=== PATIENT | female | born 1945 | race Caucasian/White ===

== ENCOUNTER 2021-06-07 12:22 | Emergency (ER) | payer MEDICARE, SELFPAY ==
--- NOTE | ~2021-06-07 | XR_ITS ---
EXAMINATION: XR chest 1V portable DATE: 06/07/2021 12:57 INDICATION: Cough. COVID PUI TECHNIQUE: frontal view of the chest was obtained. COMPARISON: None FINDINGS: The lungs are clear with no focal airspace opacities, pulmonary edema, pleural effusion or pneumothor ax. The cardiomediastinal silhouette is normal. Plate and screw fixation for lower cervical anterior spinal fusion. IMPRESSION: 1. No acute cardiopulmonary disease. Reviewed, dictated and finalized at location A.
[2021-06-07 12:29] VITALS: BP 154/63; PULSE 71; RESP 23; TEMP 36.9; O2SAT 95
[2021-06-07 12:32] VITALS: O2SAT 96
--- NOTE | 2021-06-07 12:45 | ED.URI ---
HPI - URI/Sore Throat General Chief Complaint: Upper Respiratory Infection Stated Complaint: cough, wheezing Time Seen by Provider: 06/07/21 12:33 Source: patient Mode of arrival: ambulatory Limitations: no limitations History of Present Illness HPI Narrative: This is a 76-year-old female that presents emergency department for cough since this morning. Associated with headache and wheezing. She took her albuterol inhaler with little relief. Reports she is visiting from out of town. She is from [place] originally. She has had one of her Covid vaccines, is due for the other one when she returns home. Denies fever, chest pain, or shortness of breath. Related Data Allergies Allergy/AdvReac Type Severity Reaction Status Date / Time metoclopramide [From Reglan] Allergy Hives Verified 06/07/21 12:35 bupropion [From Wellbutrin] AdvReac Unknown Verified 06/07/21 12:35 oxycodone AdvReac Jittery Verified 06/07/21 12:35 Sulfa (Sulfonamide AdvReac Seizure Verified 06/07/21 12:35 Antibiotics) Review of Systems Review of Systems: CONSTITUTIONAL: Denies fever ENT: Denies rhinorrhea, congestion, sore throat CARDIOVASCULAR: Denies chest pain, or edema. RESPIRATORY: Reports cough. Denies dyspnea. NEUROLOGIC: Reports headache All systems reviewed & are unremarkable except as noted in HPI and below PMFSH Past Medical History Medical History (Updated 06/07/21 @ 14:01 by Kathia Mills PA-C) History of COPD History of depression Social History Social History (Updated 06/07/21 @ 12:46 by Kathia Mills PA-C) Smoking status: Former smoker Exam Narrative: GENERAL: Well-appearing, well-nourished, and in no acute distress. HEAD: Normocephalic, atraumatic. EYES: EOMI. ENT: Nares clear, no rhinorrhea or epistaxis. Mucous membranes moist. Oropharynx without tonsillar hypertrophy exudate or other lesions. Bilateral TMs pearly [place] non-bulging NECK: Supple. No adenopathy or masses. CHEST: No respiratory distress. Scattered expiratory wheezes throughout the lung gonzalez. No rales or rhonchi HEART: Regular rate and rhythm. No murmur heard. Normal peripheral pulses. EXTREMITIES: Normal range of motion. No edema. SKIN: Warm, dry, no rash. NEURO: No focal deficits. Alert and oriented x3. PSYCH: Normal mood and affect Course Course Emergency Course: Lung sounds are improved following albuterol treatment Vital Signs Vital signs: Vital Signs Temperature 98.4 F 06/07/21 12:29 Pulse Rate 71 06/07/21 12:29 Respiratory Rate 23 H 06/07/21 12:29 Blood Pressure 154/63 H 06/07/21 12:29 Pulse Oximetry 95 06/07/21 12:29 Temperature 98.4 F 06/07/21 12:29 Pulse Rate 71 06/07/21 12:29 Respiratory Rate 23 H 06/07/21 12:29 Blood Pressure 154/63 H 06/07/21 12:29 Pulse Oximetry 96 06/07/21 12:32 MDM - URI/Sore Throat MDM Narrative Medical decision making narrative: Patient presents the emergency department for cold symptoms since this morning. She is afebrile and nontoxic-appearing. Oxygen saturation has remained normal on room air. CBC does show thrombocytopenia, likely due to current viral infection. Her rapid Covid swab was positive. Metabolic panel with mild hypokalemia. Patient given dose of potassium in the ED. EKG without concerning changes. Patient denies any chest pain or shortness of breath. Chest x-ray without acute cardiopulmonary abnormality. Patient was wheezing upon arrival, this was relieved with albuterol inhaler. Also given a dose of steroid IV in the ED. Will be continued on oral steroids for her COPD exacerbation. Patient was updated on case findings. She is stable and felt appropriate for further outpatient evaluation. She was given warnings to return to the ER Lab Data Attestation: I reviewed the patient's lab results. Result diagrams: 06/07/21 12:49 06/07/21 12:49 Labs: Lab Results 06/07/21 06/07/21 06/07/21 Range/Units 12:49 12:49 12:52 WB
[2021-06-07] MEDS: methylPREDNISolone SOD SUCC 125 MG VIAL IV PUSH (12:56)
[2021-06-07] MEDS: ALBUTEROL SULFATE (*SP) AEROSOL 1 PUFF 4 PUFF INHALATION (12:57)
--- NOTE | 2021-06-07 13:06 | ECG_ITS ---
Measurements Intervals [place] Rate: 65 P: 64 SC: 166 QRS: 6 QRSD: 99 T: 28 QT: 438 QTc: 459 Interpretive Statements SINUS RHYTHM POSSIBLE LEFT ATRIAL ENLARGEMENT INCOMPLETE RIGHT BUNDLE BRANCH BLOCK BORDERLINE T WAVE ABNORMALITY- DIFFUSE LEADS BASELINE ARTIFACT- II, III, AVR, AVF, V3-V6 BORDERLINE ECG Electronically Signed On 06-07-2021 20:37:57 CDT by Pedro Pablo Kaur D.O.
[2021-06-07 13:15] LABS: Basophils Percent Auto 0.3 % (0.2-1.2); Eosinophils Absolute Auto 0.1 K/mm3 (0-0.3); Eosinophils Percent Auto 1.4 % (0-4.4); Hematocrit 40.4 % (37.0-47.0); Hemoglobin 12.8 g/dL (12.0-15.0); Immature Granulocyte Absolute 0.01 K/mm3 (0.00-0.031); Immature Granulocyte Percent A 0.3 % (0-0.5); Immature Platelet Fraction Pct 2.8 % (0.9-11.2); Lymphocytes Absolute Auto 0.58 K/mm3 (0.9-3.2); Lymphocytes Percent Auto 15.8 % (18.3-44.2); Mean Corpuscular HGB Conc 31.7 g/dl (32-36); Mean Corpuscular Hemoglobin 29.8 pg (26-34); Mean Platelet Volume 9.7 fl (7.4-10.4); Monocytes Absolute Auto 0.4 K/mm3 (0.1-0.6); Monocytes Percent Auto 10.4 % (2.6-8.5); Neutrophils Absolute Auto 2.6 K/mm3 (1.3-6.7); Neutrophils Percent Auto 71.8 % (45.5-73.1); Platelet Count Result 85 k/mm3 (150-375); Red Cell Distribution Width 12.9 % (11.5-14.5); White Blood Count 3.7 K/mm3 (4.5-10.0)
[2021-06-07 13:20] LABS: EDCOVIDSCREEN Positive (Negative)
[2021-06-07 13:23] LABS: Anion Gap 5 mmol/L (8-16); Blood Urea Nitrogen 11 mg/dL (7-17); Calcium 7.9 mg/dL (8.4-10.2); Carbon Dioxide 32 mmol/L (22-30); Chloride 98 mmol/L (98-107); Estimated CRCL calculation 56 ml/min; Estimated Glomerular Filt Rate > 60; Glucose 111 mg/dL (65-110); Potassium 3.3 mmol/L (3.4-5.0); Sodium 135 mmol/L (137-145)
[2021-06-07] MEDS: POTASSIUM CHLORIDE 20 MEQ TABLET 40 MEQ PO (14:11)
== END 2021-06-07 14:25 | disposition home or self-care (01) ==
PROVIDERS: Physician Assistant; Emergency Provider Emergency Medicine
DX: U07.1 COVID-19 (principal); J44.1 Chronic obstructive pulmonary disease with (acute) exacerbation; D69.6 Thrombocytopenia, unspecified; E87.6 Hypokalemia; Z87.891 Personal history of nicotine dependence; I45.10 Unspecified right bundle-branch block; R94.31 Abnormal electrocardiogram [ECG] [EKG]
CPT/HCPCS: 36415; 71045; 80048; 85025; 85055; 87426; 93005; 96374; 99284; A9270; C9803; J2930

== ENCOUNTER 2021-06-11 20:35 | Emergency (ER) | payer MEDICARE, SELFPAY ==
--- NOTE | ~2021-06-11 | XR_ITS ---
EXAMINATION: XR chest 1V portable 06/11/2021 22:07 INDICATION: Cough. Covid. PROCEDURE: AP portable chest COMPARISON: 06/07/2021 FINDINGS: The lungs are clear. The cardiomediastinal silhouette is within normal limits. There are no pleural effusions. There is no pneumothorax suspected. IMPRESSION: 1: NO ACUTE CARDIOPULMONARY DISEASE. Reviewed, dictated and finalized at location A.
[2021-06-11 20:36] VITALS: BP 137/109; PULSE 80; RESP 17; TEMP 35.9; O2SAT 97
[2021-06-11 20:42] VITALS: BP 137/109; PULSE 62; RESP 20; TEMP 36.6; O2SAT 97
--- NOTE | 2021-06-11 21:50 | ED.URI ---
HPI - URI/Sore Throat General Chief Complaint: Upper Respiratory Infection Stated Complaint: covid+, cough Time Seen by Provider: 06/11/21 21:22 Source: patient History of Present Illness HPI Narrative: Patient presents with cough and shortness of breath. Patient was seen few days ago for the same was diagnosed with Covid was discharged home with steroids and inhaler due to her underlying COPD and asthma. Patient reports she has continued to have cough and shortness of breath. Patient ports her cough was productive she had increased drainage she was concerned so wanted to come to the ER for repeat evaluation. Related Data Allergies Allergy/AdvReac Type Severity Reaction Status Date / Time metoclopramide [From Reglan] Allergy Hives Verified 06/07/21 12:35 bupropion [From Wellbutrin] AdvReac Unknown Verified 06/07/21 12:35 oxycodone AdvReac Jittery Verified 06/07/21 12:35 Sulfa (Sulfonamide AdvReac Seizure Verified 06/07/21 12:35 Antibiotics) Review of Systems Review of Systems: CONSTITUTIONAL: Denies fever, chills, or sweats. EYES: Denies visual changes, redness, or discharge. ENT: Denies rhinorrhea, congestion, sore throat, or otalgia. CARDIOVASCULAR: Denies chest pain, palpitations, or edema. RESPIRATORY: Reports cough and shortness of breath GASTROINTESTINAL: Denies abdominal pain, nausea, vomiting, or diarrhea. GENITOURINARY: Denies dysuria or hematuria. SKIN: Denies rash or itching. MUSCULOSKELETAL: Denies back pain, joint pain. NEUROLOGIC: Denies headache, numbness, dizziness, or weakness. PSYCHIATRIC: Denies anxiety or depression. All systems reviewed & are unremarkable except as noted in HPI and below PMFSH Past Medical History Medical History History of COPD History of depression Social History Social History Smoking status: Former smoker Exam Narrative: GENERAL: Well-appearing, well-nourished, and in no acute distress. HEAD: Normocephalic, atraumatic. EYES: PERRLA and EOMI. ENT: Nares clear, no rhinorrhea or epistaxis. Mucous membranes moist. NECK: Supple. No masses. No JVD CHEST: No respiratory distress, diffuse rhonchi in all lung gonzalez HEART: Regular rate and rhythm. No murmur heard. Normal peripheral pulses. ABDOMEN: Soft, nontender, nondistended, normal active bowel sounds. EXTREMITIES: Normal range of motion. No edema. SKIN: Warm, dry, no rash. NEURO: No focal deficits. Alert and oriented x3. PSYCH: Normal mood and affect. Course Reevaluation(s) Reevaluation #1: Patient is resting comfortably reports feeling improved work-up reviewed with patient Date: 06/11/21 Time: 23:26 Vital Signs Vital signs: Vital Signs Temperature 35.9 C L 06/11/21 20:36 Pulse Rate 80 06/11/21 20:36 Respiratory Rate 17 06/11/21 20:36 Blood Pressure 137/109 H 06/11/21 20:36 Pulse Oximetry 97 06/11/21 20:36 Temperature 36.6 C 06/11/21 20:42 Pulse Rate 72 06/11/21 23:59 Respiratory Rate 20 06/11/21 23:59 Blood Pressure 165/58 H 06/11/21 23:59 Pulse Oximetry 94 06/11/21 23:59 MDM - URI/Sore Throat MDM Narrative Medical decision making narrative: H&P as above, vss, pt looks clinically well, exam with diffuse rhonchi, labs clinically unremarkable, img clinically unremarkable, additional labs/img considered. symptomatic relief available as needed, patient treated DuoNeb's and steroids. on reevaluation pt continues to looks clinically well reporting large improvement in symptoms. Suspect Covid pneumonia with COPD exacerbation, dns bacterial pneumonia, severe sepsis, hypoxia. plan to tx/monitor as op w/ pcm f/u findings/plan discussed with pt, pt agree/comfortable with plan, return precautions given patient reports having plenty of inhalers at home. Lab Data Result diagrams: 06/11/21 22:18 06/11/21 22:18 Labs: Lab Results 06/11/21 06/11/21 R
[2021-06-11] MEDS: ALBUTEROL SULFATE NEB 2.5 MG/0.5 ML INH 5 MG INHALATION (22:27)
[2021-06-11] MEDS: IPRATROPIUM BR 0.02% INH SOLN 0.5 MG/2.5 ML VIAL INHALATION (22:27)
[2021-06-11 22:29] VITALS: PULSE 61; RESP 17
[2021-06-11 22:31] LABS: Basophils Percent Auto 0.2 % (0.2-1.2); Eosinophils Absolute Auto 0.1 K/mm3 (0-0.3); Eosinophils Percent Auto 1.6 % (0-4.4); Hematocrit 40.8 % (37.0-47.0); Hemoglobin 12.9 g/dL (12.0-15.0); Immature Granulocyte Absolute 0.03 K/mm3 (0.00-0.031); Immature Granulocyte Percent A 0.7 % (0-0.5); Immature Platelet Fraction Pct 3.7 % (0.9-11.2); Lymphocytes Absolute Auto 0.67 K/mm3 (0.9-3.2); Mean Corpuscular HGB Conc 31.6 g/dl (32-36); Mean Corpuscular Hemoglobin 29.5 pg (26-34); Mean Corpuscular Volume 93.4 fl (80-100); Mean Platelet Volume 10.2 fl (7.4-10.4); Monocytes Absolute Auto 0.3 K/mm3 (0.1-0.6); Monocytes Percent Auto 7.2 % (2.6-8.5); Neutrophils Absolute Auto 3.4 K/mm3 (1.3-6.7); Neutrophils Percent Auto 75.3 % (45.5-73.1); Platelet Count Result 84 k/mm3 (150-375); Red Blood Count 4.37 M/mm3 (4.2-5.4); Red Cell Distribution Width 12.7 % (11.5-14.5); White Blood Count 4.5 K/mm3 (4.5-10.0)
[2021-06-11 22:32] VITALS: BP 176/69; PULSE 57; RESP 22; O2SAT 93
[2021-06-11] MEDS: methylPREDNISolone SOD SUCC 125 MG VIAL IV PUSH (22:34)
[2021-06-11 22:38] VITALS: PULSE 58; RESP 19
[2021-06-11 22:47] LABS: Alanine Aminotransferase 48 U/L (4-35); Albumin Level 3.7 g/dL (3.5-5.1); Alkaline Phosphatase 123 U/L (38-126); Anion Gap 5 mmol/L (8-16); Aspartate Amino Transferase 26 U/L (14-36); Bilirubin,Total 0.3 mg/dL (0.2-1.3); Blood Urea Nitrogen 14 mg/dL (7-17); Calcium 8.6 mg/dL (8.4-10.2); Carbon Dioxide 34 mmol/L (22-30); Chloride 98 mmol/L (98-107); Estimated CRCL calculation 55 ml/min; Estimated Glomerular Filt Rate > 60; Glucose 134 mg/dL (65-110); Potassium 3.8 mmol/L (3.4-5.0); Sodium 137 mmol/L (137-145)
[2021-06-11 23:59] VITALS: BP 165/58; PULSE 72; RESP 20; O2SAT 94
== END 2021-06-12 00:01 | disposition home or self-care (01) ==
PROVIDERS: Emergency Provider Emergency Medicine
DX: U07.1 COVID-19 (principal); J44.1 Chronic obstructive pulmonary disease with (acute) exacerbation; Z87.891 Personal history of nicotine dependence
CPT/HCPCS: 36415; 71045; 80053; 85025; 85055; 94640; 96374; 99284; J2930

== ENCOUNTER 2022-03-16 14:53 | Emergency (ER) | payer MEDICARE, SELFPAY ==
[2022-03-16] VITALS (17 sets, daily range): BP systolic 113–125; BP diastolic 55–66; PULSE 59–74; RESP 13–22; TEMP 36.2; O2SAT 91–96
--- NOTE | ~2022-03-16 | US_ITS ---
EXAMINATION: US venous doppler LE RT DATE: 03/16/2022 15:32 INDICATION: redness, warmth, swelling at ankle, right lower limb pain. TECHNIQUE: Grayscale images without and with compression and Doppler images of the left lower extremi ty veins were obtained. COMPARISON: None FINDINGS: The right common femoral vein, profunda femoral vein, femoral vein, popliteal vein, peroneal vein, po sterior tibial veins, gastrocnemius vein, and greater saphenous vein are patent. Small Dudley's cyst. No sonographic abnormality in the area of erythema. IMPRESSION: 1. Patent right lower extremity veins. No evidence of deep venous thrombosis Reviewed, dictated and finalized at location K.
--- NOTE | 2022-03-16 15:10 | ED.WOUNDLAC ---
HPI - Wound/Laceration General Chief Complaint: Wound/Laceration Stated Complaint: redness to RLE Time Seen by Provider: 03/16/22 15:03 History of Present Illness HPI narrative: Patient is a 77-year-old female here for evaluation of redness, pain and swelling around her right calf today. Patient states she woke up with the pain this morning. She states the area feels hot to touch. She has not tried any medications for her pain. Denies history of blood clot. Denies chest pain, shortness of breath, fevers, chills, abdominal pain. She takes Xarelto and has a history of low platelets. Related Data Allergies Allergy/AdvReac Type Severity Reaction Status Date / Time metoclopramide [From Reglan] Allergy Hives Verified 03/16/22 18:00 Sulfa (Sulfonamide Allergy Seizure Verified 03/16/22 18:00 Antibiotics) bupropion [From Wellbutrin] AdvReac Unknown Verified 03/16/22 18:00 oxycodone AdvReac Jittery Verified 03/16/22 18:00 Review of Systems Review of Systems: Gen.: Denies fevers or chills Eyes: Denies eye pain or visual change ENT: Denies congestion Respiratory: Denies shortness of breath or cough CV: Denies chest pain or palpitations GI: Denies abdominal pain nausea, emesis or diarrhea denies burning, urgency, frequency or hematuria Musculoskeletal: Denies back pain or muscle pain Neuro: Denies numbness, tingling, weakness or focal weakness Skin: Reports redness to right lower extremity Except as documented, all other systems reviewed and negative [facility] Past Medical History Medical History History of COPD History of depression Social History Social History Smoking status: Former smoker Exam Narrative: Gen: Alert, oriented, no acute distress Eyes: EOMI, no icterus Pulm: Respirations even and unlabored, symmetric thorax expansion, no audible stridor or visible cyanosis CV: Regular rate per telemetry GI: No distension, no voluntary/involuntary guarding Neuro: AOx4, moves all extremities without apparent difficulty or weakness, follows commands MSK: Calf tenderness on the right. 1+ pitting edema to RLE. Skin: Patient has a 3 cm, bandlike area of blanching erythema around her right lower extremity that is warm and tender to palpation. There are numerous petechiae to right lower extremity that does not overlie the area of erythema. Psych: Normal mood/affect, insight/judgement good, adequate fund of knowledge, recent/remote memory intact Course Vital Signs Vital signs: Vital Signs Temperature 97.2 F L 03/16/22 14:56 Pulse Rate 74 03/16/22 14:56 Respiratory Rate 16 03/16/22 14:56 Blood Pressure 116/65 03/16/22 14:56 Pulse Oximetry 96 03/16/22 14:56 Temperature 97.2 F L 03/16/22 14:56 Pulse Rate 66 03/16/22 18:01 Respiratory Rate 14 03/16/22 18:01 Blood Pressure 113/55 L 03/16/22 18:00 Pulse Oximetry 94 03/16/22 18:01 MDM - Wound/Laceration MDM Narrative Medical decision making narrative: 77-year-old female with a history of atrial fibrillation on Xarelto here for evaluation of a red painful rash to her right lower extremity. Vital signs normal, she is nontoxic-appearing and has no systemic symptoms. Ultrasound negative for DVT, work-up significant for platelets of 77, and elevated PT/PTT. Patient tells me that she has a history of chronic thrombocytopenia, this is confirmed with previous visits to ED. Possible petechial component to her rash, very low suspicion for TTP, HUS as patient is not systemically ill. Discussed case with nurse practitioner Suzie badillo for patient's primary care doctor, she was unable to locate old records to compare to previous values, but she will see the patient in clinic tomorrow. We will treat for presumed cellulitis with doxycycline, discussed return precautions with patient and she voiced understanding. Lab Data Result diagrams:
--- NOTE | 2022-03-16 15:23 | PC.NURSE ---
Patient off unit to US.
[2022-03-16 15:56] LABS: Basophils Percent Auto 0.4 % (0.2-1.2); Eosinophils Absolute Auto 0.1 K/mm3 (0-0.3); Eosinophils Percent Auto 1.3 % (0-4.4); Hematocrit 37.7 % (37.0-47.0); Hemoglobin 12.3 g/dL (12.0-15.0); Immature Granulocyte Absolute 0.02 K/mm3 (0.00-0.031); Immature Granulocyte Percent A 0.4 % (0-0.5); Immature Platelet Fraction Pct 3.8 % (0.9-11.2); Lymphocytes Absolute Auto 1.19 K/mm3 (0.9-3.2); Lymphocytes Percent Auto 21.7 % (18.3-44.2); Mean Corpuscular HGB Conc 32.6 g/dl (32-36); Mean Corpuscular Hemoglobin 30.1 pg (26-34); Mean Corpuscular Volume 92.2 fl (80-100); Monocytes Absolute Auto 0.3 K/mm3 (0.1-0.6); Monocytes Percent Auto 5.8 % (2.6-8.5); Neutrophils Absolute Auto 3.9 K/mm3 (1.3-6.7); Neutrophils Percent Auto 70.4 % (45.5-73.1); Platelet Count Result 77 k/mm3 (150-375); Red Blood Count 4.09 M/mm3 (4.2-5.4); Red Cell Distribution Width 12.5 % (11.5-14.5); White Blood Count 5.5 K/mm3 (4.5-10.0)
[2022-03-16 16:06] LABS: INR 1.7; Prothrombin Time 19.6 Seconds (11.1-14.7)
[2022-03-16 16:07] LABS: Partial Thromboplastin Time 38.2 SECONDS (22.3-36.8)
[2022-03-16 16:10] LABS: Anion Gap 5 mmol/L (8-16); Blood Urea Nitrogen 14 mg/dL (7-17); Calcium 8.2 mg/dL (8.4-10.2); Carbon Dioxide 31 mmol/L (22-30); Chloride 102 mmol/L (98-107); Estimated CRCL calculation 63 ml/min; Estimated Glomerular Filt Rate > 60; Glucose 157 mg/dL (65-110); Potassium 3.7 mmol/L (3.4-5.0); Sodium 138 mmol/L (137-145)
[2022-03-16] MEDS: ACETAMINOPHEN 325 MG TABLET 650 MG PO (17:59)
[2022-03-16] MEDS: DOXYCYCLINE HYCLATE 100 MG TABLET PO (17:59)
== END 2022-03-16 18:58 | disposition home or self-care (01) ==
PROVIDERS: Physician Assistant; Emergency Provider Emergency Medicine; PCP Family Medicine
DX: L03.115 Cellulitis of right lower limb (principal); J44.9 Chronic obstructive pulmonary disease, unspecified; Z79.01 Long term (current) use of anticoagulants; Z87.891 Personal history of nicotine dependence; I48.91 Unspecified atrial fibrillation
CPT/HCPCS: 36415; 80048; 85025; 85055; 85610; 85730; 93971; 99284; A9270

== ENCOUNTER 2022-05-04 19:33 | Emergency (ER) | payer MEDICARE, SELFPAY ==
--- NOTE | ~2022-05-04 | CT_ITS ---
EXAMINATION: CT brain wo con DATE: 05/04/2022 21:28 INDICATION: hx stroke, weakness today . TECHNIQUE: Computed tomography (CT) of the head was performed without intravenous contrast. The mA wa s adjusted according to patient size. Iterative reconstruction technique was employed. The dose-lengt h product was 605.33 mGy-cm. COMPARISON: None FINDINGS: No acute intracranial hemorrhage or extra-axial fluid collection. No hydrocephalus, mass, or herniation. No acute ischemic infarct. Unremarkable dural venous sinus attenuation. No acute osseous abnormality. The aerated spaces are clear. Moderate atrophy and mild chronic white matter change. Atherosclerotic intracranial calcification. Bi lateral lens replacements. IMPRESSION: No acute intracranial process. Reviewed, dictated and finalized at location K.
--- NOTE | ~2022-05-04 | XR_ITS ---
EXAMINATION: XR chest 2V Exam Date/Time: 05/04/2022 20:08 CDT HISTORY: WEAKNESS, SOB TODAY HX A.FIB,STENT,COPD,FORMER SMOKER Comparison: 06/11/2021. RESULT: Lines, tubes, and devices: Lower cervical fusion hardware. Lungs and pleura: Clear. Senescent changes. Cardiomediastinal silhouette: Stable. Other: No acute osseous or upper abdominal finding. IMPRESSION: No acute cardiopulmonary process. Reviewed, dictated and finalized at location K.
[2022-05-04 19:46] VITALS: BP 146/70; PULSE 55; RESP 16; TEMP 35.9; O2SAT 98
--- NOTE | 2022-05-04 19:52 | ECG_ITS ---
Measurements Intervals [place] Rate: 54 P: 63 IN: 147 QRS: 6 QRSD: 95 T: 16 QT: 487 QTc: 463 Interpretive Statements SINUS BRADYCARDIA POSSIBLE LEFT ATRIAL ENLARGEMENT POSSIBLE RIGHT VENTRICULAR CONDUCTION DELAY NONSPECIFIC ST ABNORMALITY PROLONGED QT INTERVAL COMPARED TO ECG 06/07/2021 12:59:09 HEART RATE HAS DECREASED ST (T WAVE) DEVIATION NOW PRESENT PROLONGED QT INTERVAL NOW PRESENT Electronically Signed On 05-05-2022 12:23:59 CDT by Matt Gonzáles M.D.
[2022-05-04 19:53] LABS: Glucose Point of Care 121 mg/dl (65-105)
[2022-05-04 20:08] LABS: Basophils Percent Auto 0.3 % (0.2-1.2); Eosinophils Absolute Auto 0.1 K/mm3 (0-0.3); Eosinophils Percent Auto 0.7 % (0-4.4); Hematocrit 43.8 % (37.0-47.0); Hemoglobin 13.9 g/dL (12.0-15.0); Immature Granulocyte Absolute 0.02 K/mm3 (0.00-0.031); Immature Granulocyte Percent A 0.3 % (0-0.5); Immature Platelet Fraction Pct 3.9 % (0.9-11.2); Lymphocytes Absolute Auto 1.52 K/mm3 (0.9-3.2); Lymphocytes Percent Auto 20.1 % (18.3-44.2); Mean Corpuscular HGB Conc 31.7 g/dl (32-36); Mean Corpuscular Hemoglobin 28.8 pg (26-34); Mean Corpuscular Volume 90.7 fl (80-100); Mean Platelet Volume 9.6 fl (7.4-10.4); Monocytes Absolute Auto 0.5 K/mm3 (0.1-0.6); Monocytes Percent Auto 6.9 % (2.6-8.5); Neutrophils Absolute Auto 5.5 K/mm3 (1.3-6.7); Neutrophils Percent Auto 71.7 % (45.5-73.1); Platelet Count Result 103 k/mm3 (150-375); Red Blood Count 4.83 M/mm3 (4.2-5.4); Red Cell Distribution Width 12.6 % (11.5-14.5); White Blood Count 7.6 K/mm3 (4.5-10.0)
[2022-05-04 20:25] LABS: Alanine Aminotransferase 11 U/L (6-35); Albumin Level 4.3 g/dL (3.5-5.1); Alkaline Phosphatase 94 U/L (38-126); Anion Gap 10 mmol/L (8-16); Aspartate Amino Transferase 21 U/L (14-36); Bilirubin,Total 1.1 mg/dL (0.2-1.3); Blood Urea Nitrogen 15 mg/dL (7-17); Calcium 8.7 mg/dL (8.4-10.2); Carbon Dioxide 29 mmol/L (22-30); Chloride 96 mmol/L (98-107); Estimated CRCL calculation 61 ml/min; Estimated Glomerular Filt Rate > 60; Glucose 110 mg/dL (65-110); Potassium 3.3 mmol/L (3.4-5.0); Sodium 135 mmol/L (137-145)
[2022-05-04 20:53] LABS: Appearance Urine Clear (Clear); Bilirubin Urine Negative (Negative); Blood Urine Trace-lysed (Negative); Color Urine Yellow (Yellow); Glucose Urine UA Negative (Negative); Ketones Urine Negative (Negative); Leukocyte Esterase Ur Negative LEU/UL (Negative); Nitrate Urine Negative (Negative); Protein Urine Negative (Negative); Urobilinogen Urine 0.2 mg/dL (<2.0)
[2022-05-04 20:59] LABS: Mucus Urine Rare /lpf; RBC Urine 0-2 /hpf (0-2); Squamous Epithelial Cell Urine Rare /hpf (Few)
[2022-05-04 21:01] LABS: Add Urine Microscopic? YES
--- NOTE | 2022-05-04 21:05 | ED.GENADULT ---
HPI - General Adult General Chief complaint: Weakness Stated complaint: WEAK AFTER WATER AEROBICS Time Seen by Provider: 05/04/22 21:04 History of Present Illness HPI narrative: Patient is a 77-year-old female history of prior CVA on Xarelto, here for evaluation of weakness earlier today. Patient states that she was feeling tired all throughout the day today. She took a water aerobics class earlier this evening, and during the class she felt more weak and tired, and felt like she might pass out. She got out of the water, and her symptoms improved but were still present, so she decided to come to the ED. She denies history of previous similar sensation. She denies any chest pain, syncope, dizziness, visual changes, headaches, paresthesias. She has history of COPD and states that she has a chronic cough, not worse than usual. Notes that she did not have much to eat or drink today. Related Data Allergies Allergy/AdvReac Type Severity Reaction Status Date / Time metoclopramide [From Reglan] Allergy Hives Verified 05/04/22 22:21 Sulfa (Sulfonamide Allergy Seizure Verified 05/04/22 22:21 Antibiotics) bupropion [From Wellbutrin] AdvReac Unknown Verified 05/04/22 22:21 oxycodone AdvReac Jittery Verified 05/04/22 22:21 Review of Systems Review of Systems: Gen: Reports weakness and chills Eyes: Denies eye pain or visual change ENT: Denies congestion Respiratory: Denies shortness of breath or cough CV: Denies chest pain or palpitations GI: Denies abdominal pain nausea, emesis or diarrhea : denies burning, urgency, frequency or hematuria Musculoskeletal: Denies back pain or muscle pain Neuro: Denies numbness, tingling, or focal weakness Skin: Denies rash Except as documented, all other systems reviewed and negative PMFSH Past Medical History Medical History History of COPD History of depression Social History Social History Smoking status: Former smoker Exam Narrative: APPEARANCE: Well appearing, no pain in distress, well-nourished. Head: Normocephalic and atraumatic. EYES: PERRLA/EOMI, conjunctivae clear NOSE: No nasal drainage EARS: External ear normal in appearance THROAT: Oropharynx is clear. Mucous membranes are moist. NECK: Supple. No adenopathy, no masses. RESPIRATORY: Airway patent, respirations nonlabored. Clear to auscultation bilaterally, no rales, rhonchi, wheezing. CARDIOVASCULAR: Regular rate and rhythm without murmurs, rubs, or gallops. ABDOMINAL: Normoactive bowel sounds. Soft, nontender, nondistended. No rebound tenderness or guarding. MUSCULOSKELETAL: Extremities are warm and well-perfused. Moves all extremities well. No edema. NEURO: Cranial nerves II through XII intact. [id number] normal. Normal speech. SKIN: Skin is warm and dry. No rashes. PSYCHIATRIC: Normal affect/mood. Course Vital Signs Vital signs: Vital Signs Temperature 96.7 F L 05/04/22 19:46 Pulse Rate 55 L 05/04/22 19:46 Respiratory Rate 16 05/04/22 19:46 Blood Pressure 146/70 H 05/04/22 19:46 Pulse Oximetry 98 05/04/22 19:46 Oxygen Delivery Room Air 05/04/22 19:46 Temperature 96.7 F L 05/04/22 19:46 Pulse Rate 82 05/04/22 23:27 Respiratory Rate 16 05/04/22 23:27 Blood Pressure 146/70 H 05/04/22 19:46 Pulse Oximetry 98 05/04/22 23:27 Oxygen Delivery Room Air 05/04/22 19:46 Medical Decision Making MDM Narrative Medical decision making narrative: Patient is a 77-year-old female with a history of COPD here for evaluation of generalized weakness today, increased after a workout class. Here, she is non-toxic appearing, slightly bradycardic, but upon chart review she is chronically bradycardic. She has no focal neurologic deficits, and her heart and lungs are clear to auscultation. Patient tells me that she did not eat anything today or have much to drink, so feeling this
[2022-05-04 21:31] LABS: Magnesium 2.1 mg/dL (1.6-2.3); Phosphorus 4.3 mg/dL (2.5-4.5)
[2022-05-04 22:17] LABS: SARS-CoV-2 RNA PCR Negative
[2022-05-04 22:23] LABS: Troponin I < 0.012 ng/mL (0.000-0.034)
[2022-05-04] MEDS: POTASSIUM CHLORIDE 20 MEQ TABLET PO (22:48)
[2022-05-04 23:27] VITALS: PULSE 82; RESP 16; O2SAT 98
== END 2022-05-04 23:29 | disposition home or self-care (01) ==
PROVIDERS: Physician Assistant; Emergency Provider Emergency Medicine; PCP Family Medicine
DX: E87.6 Hypokalemia (principal); Z20.822 Contact with and (suspected) exposure to COVID-19; J44.9 Chronic obstructive pulmonary disease, unspecified; Z87.891 Personal history of nicotine dependence; R00.1 Bradycardia, unspecified; R94.31 Abnormal electrocardiogram [ECG] [EKG]
CPT/HCPCS: 36415; 70450; 71046; 80053; 81001; 82948; 83735; 84100; 84484; 85025; 85055; 93005; 99284; A9270; C9803; U0003; U0005

== ENCOUNTER 2022-06-21 12:47 | Emergency (ER) | payer MEDICARE, SELFPAY ==
[2022-06-21 13:08] VITALS: BP 108/55; PULSE 62; RESP 18; TEMP 36.2; O2SAT 96
--- NOTE | 2022-06-21 14:12 | ED.URI ---
HPI - URI/Sore Throat General Chief Complaint: Upper Respiratory Infection Stated Complaint: Headache,Sinus Time Seen by Provider: 06/21/22 14:12 Source: patient, RN notes reviewed and old records reviewed Mode of arrival: ambulatory Limitations: no limitations History of Present Illness HPI Narrative: 77 year old female who presents to express care with complaints of' sinus infection which started yesterday. Patient reports that she has a bad headache, has had brownish drainage from her left nostril and has had facial pressure especially on the left side of her face. Patient reports that she has had sinus surgery 8 times in the past when she lived in [place].Patient reports that she has taken Tylenol for her discomfort but not any Claritin or any decongestant, states is on numerous medications and blood thinner and is afraid of taking OTC medications MD elicited complaint: rhinorrhea, nasal congestion, sinus pain and other (patient states that she has 'sinus infection') Pertinent past history: COPD and asthma Onset (ago): day(s) (1) Description of mucous: green and other (brownish) Treatments prior to arrival: acetaminophen Related Data Home Medications Medication Instructions Recorded Confirmed albuterol sulfate 90 mcg/actuation 2 puff inhalation PRN PRN 06/21/22 06/21/22 aerosol inhaler Shortness Of Breath Or Wheezing atorvastatin 20 mg tablet 20 mg PO DAILY 06/21/22 06/21/22 buspirone 15 mg tablet 15 mg PO DAILY 06/21/22 06/21/22 carbidopa 25 mg-levodopa 100 mg 1 tablet PO DAILY 06/21/22 06/21/22 tablet donepezil 5 mg tablet 5 mg PO DAILY 06/21/22 06/21/22 levothyroxine 25 mcg tablet 25 mcg PO DAILY 06/21/22 06/21/22 memantine 10 mg tablet 10 mg PO DAILY 06/21/22 06/21/22 oxybutynin chloride 5 mg tablet 5 mg PO DAILY 06/21/22 06/21/22 pantoprazole 40 mg tablet,delayed 40 mg PO DAILY 06/21/22 06/21/22 release rivaroxaban 20 mg tablet (Xarelto) 20 mg PO DAILY 06/21/22 06/21/22 Allergies Allergy/AdvReac Type Severity Reaction Status Date / Time Sulfa (Sulfonamide AdvReac Severe Seizure Verified 06/21/22 14:04 Antibiotics) bupropion [From Wellbutrin] AdvReac Intermediate Palpitation Verified 06/21/22 14:04 s oxycodone AdvReac Intermediate Jittery Verified 06/21/22 14:04 erythromycin base AdvReac Mild Hives Verified 06/21/22 14:05 metoclopramide [From Reglan] AdvReac Mild Hives Verified 06/21/22 14:04 Penicillins AdvReac Mild Hives Verified 06/21/22 14:04 Review of Systems Review of Systems: CONSTITUTIONAL: Denies fever, chills, or sweats. EYES: Denies visual changes, redness, or discharge. ENT: Positive rhinorrhea, congestion, no sore throat, or otalgia. CARDIOVASCULAR: Denies chest pain, palpitations, or edema. RESPIRATORY: Denies cough or dyspnea. GASTROINTESTINAL: Denies abdominal pain, nausea, vomiting, or diarrhea. GENITOURINARY: Denies dysuria or hematuria. SKIN: Denies rash or itching. MUSCULOSKELETAL: Denies back pain, joint pain, or myalgia. NEUROLOGIC: Positive frontal headache, no numbness, or weakness. PSYCHIATRIC: Positive anxiety or depression. All systems reviewed & are unremarkable except as noted in HPI and below PMFSH Past Medical History Medical History (Updated 06/24/22 @ 20:15 by Cortney Whitehead NP) Arthritis Asthma Chronic a-fib COVID-19 128451 Elevated cholesterol History of COPD History of depression Hx of alf use of blood thinners Hypertension Hypothyroidism Primary Parkinson's disease Surgical History Surgical History (Updated 06/24/22 @ 20:15 by Cortney Whitehead NP) H/O heart artery stent H/O neck surgery H/O sinus surgery H/O tubal ligation Hx of appendectomy Hx of cholecystectomy Previous back surgery S/P tonsillectomy and adenoidectomy Social History Social History Smoking status: Former smoker Comments At time of signature agree with nursing diagnosis of past medical surgical, socia
== END 2022-06-21 14:30 | disposition home or self-care (01) ==
PROVIDERS: Emergency Provider Registered Nurse; PCP Family Medicine
DX: J32.9 Chronic sinusitis, unspecified (principal); M19.90 Unspecified osteoarthritis, unspecified site; I48.91 Unspecified atrial fibrillation; E78.00 Pure hypercholesterolemia, unspecified; J44.9 Chronic obstructive pulmonary disease, unspecified; I10 Essential (primary) hypertension; E03.9 Hypothyroidism, unspecified; G20 Parkinson's disease; Z95.1 Presence of aortocoronary bypass graft; F32.A Depression, unspecified
CPT/HCPCS: 99213; G0463

== ENCOUNTER 2022-07-09 11:01 | Outpatient (CLI) | payer MEDICARE, SELFPAY ==
--- NOTE | ~2022-07-09 | US_ITS ---
US abdomen complete EXAMINATION: US Abdomen Complete INDICATION: Thrombocytopenia PROCEDURE: Realtime High Resolution abdomen ultrasound. COMPARISON: No prior studies for comparison FINDINGS: Gallbladder is surgically absent. Common bile duct measures 8.5 mm. Liver echotexture within normal limits without focal solid mass. There are liver cysts, largest measu ring 1.5 cm. Pancreas within normal limits. Pancreatic tail is obscured by bowel gas. Spleen is unr emarkeable. Renal echotexture is within normal limits bilaterally without hydronephrosis, contour def orming mass or renal stone. Right kidney measures 10 cm. Left kidney measures 9 cm. Visualized aspects of the aorta and IVC are within normal limits. Portal vein is patent IMPRESSION: 1: Liver cysts. 2: Status post cholecystectomy with expected prominence of the common duct. Reviewed, dictated and finalized at location A.
== END 2022-07-09 11:02 | disposition home or self-care (01) ==
PROVIDERS: PCP Student in an Organized Health Care Education/Training Program
DX: D69.6 Thrombocytopenia, unspecified (principal); K76.89 Other specified diseases of liver; Z90.49 Acquired absence of other specified parts of digestive tract
CPT/HCPCS: 76700

== ENCOUNTER → 2022-07-30 10:21 | Outpatient (CLI) | payer MEDICARE, SELFPAY ==
--- NOTE | ~2022-07-30 | CT_ITS ---
EXAMINATION: CT sinus wo con DATE: 07/30/2022 10:33 INDICATION: Chronic sinusitis TECHNIQUE: Computed tomography (CT) of the paranasal sinuses was performed without intravenous contra st. The dose-length product was 287.97 mGy-cm. Automated exposure control and iterative reconstructio n technique were employed. COMPARISON: CT dated 05/04/2022 FINDINGS: There are surgical changes consistent with resection of the ostiomeatal units bilaterally. There is mucoperiosteal reaction within the paranasal sinuses. No significant nasal septal deviation. There is mild mucosal thickening of the frontal, maxillary and sphenoid sinuses. Mastoids are pneuma tized. IMPRESSION: 1. Mild chronic sinus disease with postoperative changes. Reviewed, dictated and finalized at location B.
== END ==
PROVIDERS: PCP Student in an Organized Health Care Education/Training Program; Visit Provider Otolaryngology
DX: J32.9 Chronic sinusitis, unspecified (principal); Z98.890 Other specified postprocedural states
CPT/HCPCS: 70486

== ENCOUNTER 2022-08-01 14:11 | Emergency (ER) | payer MEDICARE, SELFPAY ==
[2022-08-01 14:21] VITALS: BP 115/70; PULSE 67; RESP 18; TEMP 36.4; O2SAT 98
--- NOTE | 2022-08-01 14:35 | ED.SKABFB ---
HPI - Skin/Abscess/Foreign Bdy General Chief complaint: Skin/Abscess/Foreign Body Stated complaint: Rash On Right Thigh Time Seen by Provider: 08/01/22 14:25 Source: patient Mode of arrival: ambulatory Limitations: no limitations History of Present Illness HPI narrative: Ms. Romero is a 77-year-old female patient presenting to clinic today with complaints rash to the right upper thigh and lower leg. She reports this has been ongoing since yesterday. She reports that it has spread some. She denies any fever chills. She reports that the rash is erythemic however is not painful or itching. She denies any new environmental changes, foods, or medications Related Data Home Medications Medication Instructions Recorded Confirmed albuterol sulfate 90 mcg/actuation 2 puff inhalation PRN PRN 06/21/22 08/01/22 aerosol inhaler Shortness Of Breath Or Wheezing atorvastatin 20 mg tablet 20 mg PO DAILY 06/21/22 08/01/22 buspirone 15 mg tablet 15 mg PO DAILY 06/21/22 08/01/22 carbidopa 25 mg-levodopa 100 mg 1 tablet PO DAILY 06/21/22 08/01/22 tablet donepezil 5 mg tablet 5 mg PO DAILY 06/21/22 08/01/22 levothyroxine 25 mcg tablet 25 mcg PO DAILY 06/21/22 08/01/22 memantine 10 mg tablet 10 mg PO DAILY 06/21/22 08/01/22 oxybutynin chloride 5 mg tablet 5 mg PO DAILY 06/21/22 08/01/22 pantoprazole 40 mg tablet,delayed 40 mg PO DAILY 06/21/22 08/01/22 release rivaroxaban 20 mg tablet (Xarelto) 20 mg PO DAILY 06/21/22 08/01/22 Allergies Allergy/AdvReac Type Severity Reaction Status Date / Time Sulfa (Sulfonamide AdvReac Severe Seizure Verified 08/01/22 14:14 Antibiotics) bupropion [From Wellbutrin] AdvReac Intermediate Palpitation Verified 08/01/22 14:14 s oxycodone AdvReac Intermediate Jittery Verified 08/01/22 14:14 erythromycin base AdvReac Mild Hives Verified 08/01/22 14:14 metoclopramide [From Reglan] AdvReac Mild Hives Verified 08/01/22 14:14 Penicillins AdvReac Mild Hives Verified 08/01/22 14:14 Review of Systems Review of Systems: Pertinent positives per HPI. Patient denies any fever, chills, headache, visual changes, dizziness, cough, runny nose, sore throat, shortness of breath, chest pain, palpitations, nausea, vomiting, diarrhea, constipation, abdominal pain, or any urinary issues. PMFSH Past Medical History Medical History Arthritis Asthma Chronic a-fib COVID-19 [id number] Elevated cholesterol History of COPD History of depression Hx of halfway use of blood thinners Hypertension Hypothyroidism Primary Parkinson's disease Surgical History Surgical History H/O heart artery stent H/O neck surgery H/O sinus surgery H/O tubal ligation Hx of appendectomy Hx of cholecystectomy Previous back surgery S/P tonsillectomy and adenoidectomy Social History Social History Smoking status: Former smoker Comments At the time of my signature, I reviewed and agree with the nursing past medical, surgical, social, and family history. There is no relevant family history pertinent to the patient complaint. Exam Narrative: General: Well-developed, well nourished, in no apparent distress Head: Normocephalic, atraumatic. Cardio: Regular rate and rhythm, s1 and s2 normal, no murmur appreciated. Resp: Clear to auscultation bilaterally, no rhonchi, rales, wheezing or rubs. Integumentary: [place], warm, and dry, intact without lesion, red, raised, and erythemic rash with mild induration to the right thigh and left medial lower upper leg. nontender to palpation. 1+ pitting edema to the right lower extremity Course Course Emergency Course: Portions of this record may have been created with voice recognition software. Level of Care: Express Care Visit Vital Signs Vital signs: Vital Signs Temperature 36.4 C L 08/01/22 14:21
== END 2022-08-01 14:42 | disposition home or self-care (01) ==
PROVIDERS: Emergency Provider Nurse Practitioner Family; PCP Student in an Organized Health Care Education/Training Program
DX: L03.115 Cellulitis of right lower limb (principal); M19.90 Unspecified osteoarthritis, unspecified site; I48.20 Chronic atrial fibrillation, unspecified; E78.00 Pure hypercholesterolemia, unspecified; J44.9 Chronic obstructive pulmonary disease, unspecified; I10 Essential (primary) hypertension; E03.9 Hypothyroidism, unspecified; G20 Parkinson's disease; F41.9 Anxiety disorder, unspecified; F32.A Depression, unspecified; Z95.5 Presence of coronary angioplasty implant and graft; Z87.891 Personal history of nicotine dependence; Z79.01 Long term (current) use of anticoagulants
CPT/HCPCS: 99213; G0463

== ENCOUNTER 2022-11-21 17:44 | Emergency (ER) | payer MEDICARE, SELFPAY ==
[2022-11-21] VITALS (8 sets, daily range): BP systolic 141–185; BP diastolic 62–86; PULSE 47–66; RESP 14–22; TEMP 36.2; O2SAT 95–100
--- NOTE | ~2022-11-21 | XR_ITS ---
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 RESULT: Lines, tubes, and devices: Partially visualized cervical fusion hardware. Cholecystectomy clips. Lungs and pleura: Senescent change. Minimal bibasilar scar/atelectasis. Cardiomediastinal silhouette: Stable. Other: No acute osseous or upper abdominal finding. IMPRESSION: No acute cardiopulmonary process. Reviewed, dictated and finalized at location K. PER CASHIER
--- NOTE | ~2022-11-21 | CT_ITS ---
EXAMINATION: CT brain wo con DATE: 11/21/2022 21:24 INDICATION: weakness, hypertension, dizziness, frontal MANCIA, hx CVA . TECHNIQUE: Computed tomography (CT) of the head was performed without intravenous contrast. The mA wa s adjusted according to patient size. Iterative reconstruction technique was employed. The dose-lengt h product was 681.00 mGy-cm. COMPARISON: 05/04/2022. FINDINGS: No acute intracranial hemorrhage or extra-axial fluid collection. No hydrocephalus, mass, or herniation. No acute ischemic infarct. Unremarkable dural venous sinus attenuation. No acute osseous abnormality. Prior sinus surgery. Retention cyst or polyp in the sphenoid sinus. Remaining aerated spaces are chris r. Moderate atrophy and mild chronic white matter change. Atherosclerotic intracranial calcification. Bi lateral lens replacements. IMPRESSION: No acute intracranial process. Reviewed, dictated and finalized at location K. LIANCE TESTER
[2022-11-21 17:55] LABS: Glucose Point of Care 102 mg/dl (65-105)
--- NOTE | 2022-11-21 21:05 | ECG_ITS ---
Measurements Intervals [place] Rate: 48 P: 88 [place]: 173 QRS: 23 QRSD: 102 T: 51 QT: 492 QTc: 441 Interpretive Statements SINUS BRADYCARDIA POSSIBLE RIGHT VENTRICULAR CONDUCTION DELAY [RSR (QR) IN V1/V2] ABNORMAL ECG COMPARED TO ECG 05/04/2022 19:39:38 NO SIGNIFICANT CHANGE Electronically Signed On 11-22-2022 12:39:23 BISQUE PLACER by Ulices Murphy M.D.
--- NOTE | 2022-11-21 21:14 | PC.NURSE ---
Patient report received from JUAN Madden. Assumed care of patient at this time.
--- NOTE | 2022-11-21 21:17 | PC.NURSE ---
Patient taken to CT at this time.
[2022-11-21 21:54] LABS: Basophils Percent Auto 0.2 % (0.2-1.2); Eosinophils Absolute Auto 0.2 K/mm3 (0-0.3); Eosinophils Percent Auto 2.9 % (0-4.4); Hematocrit 40.1 % (37.0-47.0); Hemoglobin 13.3 g/dL (12.0-15.0); Immature Granulocyte Absolute 0.03 K/mm3 (0.00-0.031); Immature Granulocyte Percent A 0.4 % (0-0.5); Immature Platelet Fraction Pct 3.5 % (0.9-11.2); Lymphocytes Absolute Auto 1.59 K/mm3 (0.9-3.2); Lymphocytes Percent Auto 19.9 % (18.3-44.2); Mean Corpuscular HGB Conc 33.2 g/dl (32-36); Mean Corpuscular Hemoglobin 29.8 pg (26-34); Mean Corpuscular Volume 89.7 fl (80-100); Mean Platelet Volume 9.8 fl (7.4-10.4); Monocytes Absolute Auto 0.6 K/mm3 (0.1-0.6); Monocytes Percent Auto 6.9 % (2.6-8.5); Neutrophils Absolute Auto 5.6 K/mm3 (1.3-6.7); Neutrophils Percent Auto 69.7 % (45.5-73.1); Platelet Count Result 104 k/mm3 (150-375); Red Blood Count 4.47 M/mm3 (4.2-5.4); Red Cell Distribution Width 12.9 % (11.5-14.5)
[2022-11-21 22:03] LABS: Alanine Aminotransferase 13 U/L (6-35); Alkaline Phosphatase 87 U/L (38-126); Anion Gap 4 mmol/L (8-16); Aspartate Amino Transferase 21 U/L (14-36); Bilirubin,Total 0.9 mg/dL (0.2-1.3); Blood Urea Nitrogen 15 mg/dL (7-17); Calcium 8.1 mg/dL (8.4-10.2); Carbon Dioxide 31 mmol/L (22-30); Chloride 101 mmol/L (98-107); Estimated CRCL calculation 60 ml/min; Estimated Glomerular Filt Rate > 60; Glucose 103 mg/dL (65-110); INR 1.4; Magnesium 2.3 mg/dL (1.6-2.3); Potassium 3.5 mmol/L (3.4-5.0); Prothrombin Time 16.6 Seconds (11.1-14.7); Sodium 136 mmol/L (137-145)
[2022-11-21 22:04] LABS: Partial Thromboplastin Time 32.4 SECONDS (22.3-36.8)
[2022-11-21 22:15] LABS: Troponin I < 0.012 ng/mL (0.000-0.034)
--- NOTE | 2022-11-21 22:46 | ED.GENADULT ---
HPI - General Adult General Chief complaint: Dizziness Stated complaint: high BP, shaky, dizzy Time Seen by Provider: 11/21/22 20:50 History of Present Illness HPI narrative: Patient 77-year-old female who presents emerged department with chief complaint of dizziness and mild headache. Patient states that she felt a little lightheaded and also felt as though she had a mild headache. Patient denies numbness denies tingling denies weakness in arms or legs or difficulty with speech. Patient states she checked her blood pressure and it was running high. The patient does report that in the past she had history of hypertension but is currently been able to be taken off of her blood pressure medicine patient does not check the blood pressure on a regular basis the patient states that she has prior history of a stroke and also reports that she has history of a coronary stent. Patient reports that sometimes she is had some uncomfortable feeling in her chest but reports he is currently not having active chest pain patient reports she is on a anticoagulant and reports that the symptoms have been ongoing throughout the day. Related Data Home Medications Medication Instructions Recorded Confirmed albuterol sulfate 90 mcg/actuation 2 puff inhalation PRN PRN 06/21/22 08/01/22 aerosol inhaler Shortness Of Breath Or Wheezing atorvastatin 20 mg tablet 20 mg PO DAILY 06/21/22 08/01/22 buspirone 15 mg tablet 15 mg PO DAILY 06/21/22 08/01/22 carbidopa 25 mg-levodopa 100 mg 1 tablet PO DAILY 06/21/22 08/01/22 tablet donepezil 5 mg tablet 5 mg PO DAILY 06/21/22 08/01/22 levothyroxine 25 mcg tablet 25 mcg PO DAILY 06/21/22 08/01/22 memantine 10 mg tablet 10 mg PO DAILY 06/21/22 08/01/22 oxybutynin chloride 5 mg tablet 5 mg PO DAILY 06/21/22 08/01/22 pantoprazole 40 mg tablet,delayed 40 mg PO DAILY 06/21/22 08/01/22 release rivaroxaban 20 mg tablet (Xarelto) 20 mg PO DAILY 06/21/22 08/01/22 Allergies Allergy/AdvReac Type Severity Reaction Status Date / Time Sulfa (Sulfonamide AdvReac Severe Seizure Verified 08/01/22 14:14 Antibiotics) bupropion [From Wellbutrin] AdvReac Intermediate Palpitation Verified 08/01/22 14:14 s oxycodone AdvReac Intermediate Jittery Verified 08/01/22 14:14 erythromycin base AdvReac Mild Hives Verified 08/01/22 14:14 metoclopramide [From Reglan] AdvReac Mild Hives Verified 08/01/22 14:14 Penicillins AdvReac Mild Hives Verified 08/01/22 14:14 Review of Systems Review of Systems: A 10 system review of systems was completed on the patient and is negative except for what is stated in the HPI. Nursing and ancillary documentation was reviewed. 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 HEAD: Normocephalic, atraumatic. EYES: PERRLA and EOMI. ENT: Nares clear, no rhinorrhea or epistaxis. Mucous membranes moist. NECK: Supple. CHEST: Clear to auscultation. No respiratory distress. HEART: Regular rate and rhythm. No murmur heard. Normal peripheral pulses. ABDOMEN: Soft, nontender, nondistended, normal active bowel sounds. EXTREMITIES: Normal range of motion. No edema. SKIN: Warm, dry, no rash. NEURO: No focal deficits. Alert and oriented x3. NIH stroke scale
== END 2022-11-21 23:18 | disposition home or self-care (01) ==
PROVIDERS: Emergency Provider Emergency Medicine; PCP Student in an Organized Health Care Education/Training Program
DX: I10 Essential (primary) hypertension (principal); G20 Parkinson's disease; I48.20 Chronic atrial fibrillation, unspecified; J44.9 Chronic obstructive pulmonary disease, unspecified; E03.9 Hypothyroidism, unspecified; M19.90 Unspecified osteoarthritis, unspecified site; Z95.5 Presence of coronary angioplasty implant and graft; Z86.16 Personal history of COVID-19; Z87.891 Personal history of nicotine dependence; Z79.01 Long term (current) use of anticoagulants; R94.31 Abnormal electrocardiogram [ECG] [EKG]; R00.1 Bradycardia, unspecified
CPT/HCPCS: 36415; 70450; 71045; 80053; 82948; 83735; 84484; 85025; 85055; 85610; 85730; 93005; 99284

== ENCOUNTER 2023-01-03 22:00 | Emergency (ER) | payer MEDICARE, SELFPAY ==
[2023-01-03 22:39] VITALS: BP 129/68; PULSE 76; RESP 18; TEMP 36.2; O2SAT 98
[2023-01-04 04:06] VITALS: BP 147/64; PULSE 63; RESP 18
--- NOTE | 2023-01-04 06:42 | PC.NURSE ---
pt brought back to room from waiting room - gait steady
[2023-01-04] MEDS: CLINDAMYCIN 900 MG/D5W 50 ML 900 MG/50 ML PIGGYBACK 50 MG IVPB (08:37)
[2023-01-04 08:45] LABS: Basophils Percent Auto 0.3 % (0.2-1.2); Eosinophils Absolute Auto 0.2 K/mm3 (0-0.3); Eosinophils Percent Auto 3.5 % (0-4.4); Hematocrit 40.7 % (37.0-47.0); Hemoglobin 13.6 g/dL (12.0-15.0); Immature Granulocyte Absolute 0.02 K/mm3 (0.00-0.031); Immature Granulocyte Percent A 0.3 % (0-0.5); Immature Platelet Fraction Pct 3.5 % (0.9-11.2); Lymphocytes Absolute Auto 1.29 K/mm3 (0.9-3.2); Lymphocytes Percent Auto 20.5 % (18.3-44.2); Mean Corpuscular HGB Conc 33.4 g/dl (32-36); Mean Corpuscular Hemoglobin 30.1 pg (26-34); Mean Platelet Volume 9.5 fl (7.4-10.4); Monocytes Absolute Auto 0.5 K/mm3 (0.1-0.6); Monocytes Percent Auto 7.9 % (2.6-8.5); Neutrophils Absolute Auto 4.3 K/mm3 (1.3-6.7); Neutrophils Percent Auto 67.5 % (45.5-73.1); Platelet Count Result 104 k/mm3 (150-375); Red Blood Count 4.52 M/mm3 (4.2-5.4); Red Cell Distribution Width 13.3 % (11.5-14.5); White Blood Count 6.3 K/mm3 (4.5-10.0)
[2023-01-04 09:19] LABS: Alanine Aminotransferase 14 U/L (6-35); Albumin Level 4.2 g/dL (3.5-5.1); Alkaline Phosphatase 125 U/L (38-126); Anion Gap 6 mmol/L (8-16); Aspartate Amino Transferase 19 U/L (14-36); Bilirubin,Total 0.7 mg/dL (0.2-1.3); Blood Urea Nitrogen 13 mg/dL (7-17); CRP 0.8 mg/dL (<1.0); Calcium 8.9 mg/dL (8.4-10.2); Carbon Dioxide 31 mmol/L (22-30); Chloride 99 mmol/L (98-107); Estimated CRCL calculation 53 ml/min; Estimated Glomerular Filt Rate > 60; Glucose 119 mg/dL (65-110); Potassium 3.5 mmol/L (3.4-5.0); Sodium 136 mmol/L (137-145)
--- NOTE | 2023-01-04 10:17 | PC.NURSE ---
report received from Prisca MARTINEZ
--- NOTE | 2023-01-04 11:47 | ED.SKABFB ---
HPI - Skin/Abscess/Foreign Bdy General Chief complaint: Skin/Abscess/Foreign Body Stated complaint: rash bilateral legs Time Seen by Provider: 01/04/23 07:01 Source: patient, RN notes reviewed and old records reviewed Mode of arrival: ambulatory Limitations: no limitations History of Present Illness HPI narrative: This a 77 year old female who presents for evaluation of bilateral leg rash. She reports having similar rash 6 months ago. She came to ER for evaluation and she was discharged with antibiotics. She reports that rash resolved at that time after 24 hours. She developed similar rash last night night. She has rash to bilateral legs. She denies itching , swelling, fever, pain. She notes that her urine has appeared dark intermittently for 2 weeks. She denies abdominal pain, nausea, vomiting, flank pain, dysuria or gross hematuria. She denies any new medication. Related Data Home Medications Medication Instructions Recorded Confirmed albuterol sulfate 90 mcg/actuation 2 puff inhalation PRN PRN 06/21/22 08/01/22 aerosol inhaler Shortness Of Breath Or Wheezing atorvastatin 20 mg tablet 20 mg PO DAILY 06/21/22 08/01/22 buspirone 15 mg tablet 15 mg PO DAILY 06/21/22 08/01/22 carbidopa 25 mg-levodopa 100 mg 1 tablet PO DAILY 06/21/22 08/01/22 tablet donepezil 5 mg tablet 5 mg PO DAILY 06/21/22 08/01/22 levothyroxine 25 mcg tablet 25 mcg PO DAILY 06/21/22 08/01/22 memantine 10 mg tablet 10 mg PO DAILY 06/21/22 08/01/22 oxybutynin chloride 5 mg tablet 5 mg PO DAILY 06/21/22 08/01/22 pantoprazole 40 mg tablet,delayed 40 mg PO DAILY 06/21/22 08/01/22 release rivaroxaban 20 mg tablet (Xarelto) 20 mg PO DAILY 06/21/22 08/01/22 Allergies Allergy/AdvReac Type Severity Reaction Status Date / Time Sulfa (Sulfonamide AdvReac Severe Seizure Verified 08/01/22 14:14 Antibiotics) bupropion [From Wellbutrin] AdvReac Intermediate Palpitation Verified 08/01/22 14:14 s oxycodone AdvReac Intermediate Jittery Verified 08/01/22 14:14 erythromycin base AdvReac Mild Hives Verified 08/01/22 14:14 metoclopramide [From Reglan] AdvReac Mild Hives Verified 08/01/22 14:14 Penicillins AdvReac Mild Hives Verified 08/01/22 14:14 Review of Systems Review of Systems: All systems reviewed & are unremarkable except as noted in HPI and below PMFSH Past Medical History Medical History Arthritis Asthma Chronic a-fib COVID-19 [id number] Elevated cholesterol History of COPD History of depression 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 Hypertension Hypothyroidism Primary Parkinson's disease Surgical History Surgical History H/O heart artery stent H/O neck surgery H/O sinus surgery H/O tubal ligation Hx of appendectomy Hx of cholecystectomy Previous back surgery S/P tonsillectomy and adenoidectomy Social History Social History Smoking status: Former smoker Exam Const: General: no acute distress and alert Nutritional Appearance: well nourished Orientation/consciousness: patient oriented x3 Limitations: no limitations HENMT: Head: normal to inspection Eyes: EOM: EOMs intact bilaterally Chest: Chest palpation & inspection: normal inspection of the chest Resp: Effort & Inspection: normal respiratory effort Auscultation: clear to auscultation bilaterally Cardio: Rate: regular rate Rhythm: regular rhythm Heart sounds: no murmurs GI: Auscultation: normal bowel sounds Back/Spine/Pelvis: Back: no CVA tenderness Skin: Other: bilateral lower leg with macular nonblanching red area to left calf and right anterior thigh, nontender, no drainage Neuro: General: patient oriented x3, moves all extremities and CN's II-XI intact bilaterally Extrem: General: normal to inspection Psych: Mental Status: mental status grossly normal Affect: normal affect Attit
[2023-01-04 12:02] LABS: Appearance Urine Clear (Clear); Bacteria Urine None Seen /hpf; Bilirubin Urine Negative (Negative); Blood Urine Negative (Negative); Color Urine Yellow (Yellow); Glucose Urine UA Negative (Negative); Ketones Urine Negative (Negative); Leukocyte Esterase Ur Trace LEU/UL (Negative); Nitrate Urine Negative (Negative); Non Pathogenic Casts 0-2; Protein Urine Negative (Negative); RBC Urine 0-2 /hpf (0-2); Specific Grav Ur 1.013 (1.001-1.035); Squamous Epithelial Cell Urine Occasional /hpf (Few); Urobilinogen Urine 0.2 mg/dL (<2.0); WBC Urine 0-5 /hpf
[2023-01-04] MEDS: ONDANSETRON INJ 4 MG/2 ML VIAL IV PUSH (12:04)
[2023-01-04 12:05] LABS: Add Urine Microscopic? YES
[2023-01-04 12:08] LABS: Creatine Kinase 33 U/L (30-135)
[2023-01-04 12:47] VITALS: RESP 16
== END 2023-01-04 12:48 | disposition home or self-care (01) ==
PROVIDERS: Emergency Provider General Practice; PCP Student in an Organized Health Care Education/Training Program
DX: R21 Rash and other nonspecific skin eruption (principal); J44.9 Chronic obstructive pulmonary disease, unspecified; I48.20 Chronic atrial fibrillation, unspecified; E78.00 Pure hypercholesterolemia, unspecified; I10 Essential (primary) hypertension; E03.9 Hypothyroidism, unspecified; G20 Parkinson's disease; M19.90 Unspecified osteoarthritis, unspecified site; Z86.16 Personal history of COVID-19; Z79.01 Long term (current) use of anticoagulants; Z95.5 Presence of coronary angioplasty implant and graft
CPT/HCPCS: 36415; 80053; 81001; 82550; 85025; 85055; 86140; 96365; 96375; 99284; J2405

== ENCOUNTER 2023-01-15 23:12 | Emergency (ER) | payer MEDICARE, SELFPAY ==
[2023-01-15 23:22] VITALS: BP 139/80; PULSE 66; RESP 19; TEMP 36.1; O2SAT 96
[2023-01-16 00:41] VITALS: BP 156/72; PULSE 52; RESP 18; O2SAT 94
--- NOTE | 2023-01-16 01:43 | ED.SKABFB ---
HPI - Skin/Abscess/Foreign Bdy General Chief complaint: Skin/Abscess/Foreign Body Stated complaint: Rash on BLE Time Seen by Provider: 01/16/23 00:09 Source: patient and old records reviewed Mode of arrival: ambulatory Limitations: no limitations History of Present Illness HPI narrative: Patient is a 78-year-old female who presents to the ED with report of a rash to her bilateral thighs. Patient reports having a similar rash on her lower legs a few weeks ago, at which point she was seen in the ED and prescribed a Medrol Dosepak and doxycycline for potential cellulitis. Patient states the rash resolved within a couple of days. She finished these prescriptions 4 days ago and noticed the rash again tonight, this time on her thighs. She states it is slightly itchy, but denies pain. Denies any blisters. Denies any fever, chills, nausea, vomiting, bleeding. Denies any new lotions or detergents, environmental factors. No new medications. Per records, patient has been seen for similar rashes several times in the past. Related Data Home Medications Medication Instructions Recorded Confirmed albuterol sulfate 90 mcg/actuation 2 puff inhalation PRN PRN 06/21/22 08/01/22 aerosol inhaler Shortness Of Breath Or Wheezing atorvastatin 20 mg tablet 20 mg PO DAILY 06/21/22 08/01/22 buspirone 15 mg tablet 15 mg PO DAILY 06/21/22 08/01/22 carbidopa 25 mg-levodopa 100 mg 1 tablet PO DAILY 06/21/22 08/01/22 tablet donepezil 5 mg tablet 5 mg PO DAILY 06/21/22 08/01/22 levothyroxine 25 mcg tablet 25 mcg PO DAILY 06/21/22 08/01/22 memantine 10 mg tablet 10 mg PO DAILY 06/21/22 08/01/22 oxybutynin chloride 5 mg tablet 5 mg PO DAILY 06/21/22 08/01/22 pantoprazole 40 mg tablet,delayed 40 mg PO DAILY 06/21/22 08/01/22 release rivaroxaban 20 mg tablet (Xarelto) 20 mg PO DAILY 06/21/22 08/01/22 Allergies Allergy/AdvReac Type Severity Reaction Status Date / Time Sulfa (Sulfonamide AdvReac Severe Seizure Verified 01/15/23 23:13 Antibiotics) bupropion [From Wellbutrin] AdvReac Intermediate Palpitation Verified 01/15/23 23:13 s oxycodone AdvReac Intermediate Jittery Verified 01/15/23 23:13 erythromycin base AdvReac Mild Hives Verified 01/15/23 23:13 metoclopramide [From Reglan] AdvReac Mild Hives Verified 01/15/23 23:13 Penicillins AdvReac Mild Hives Verified 01/15/23 23:13 Review of Systems Review of Systems: CONSTITUTIONAL: Denies fever, chills, or sweats. SKIN: See HPI. MUSCULOSKELETAL: See HPI. NEUROLOGIC: Denies tingling, numbness, or weakness. 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 HEAD: Normocephalic, atraumatic. NECK: Supple. No adenopathy, no masses. RESPIRATORY: Airway patent, respirations nonlabored. Clear to auscultation bilaterally, no rales, rhonchi, wheezing. CARDIOVASCULAR: Regular rate and rhythm without murmurs, rubs, or gallops. Radial pulses 2+ and equal bilaterally. MUSCULOSKELETAL: Moves all extremities. Strength/ROM intact without gross deformities. Sensation intact to extremities. No tenderness along lesions. SKIN: Warm, dry, normal color. Grouped clusters of slightly raised erythematous ma
[2023-01-16 02:05] VITALS: BP 162/75; PULSE 54; RESP 14; O2SAT 94
[2023-01-16] MEDS: FAMOTIDINE 20 MG TABLET PO (02:05)
[2023-01-16] MEDS: diphenhydrAMINE HCl CAP 25 MG CAPSULE PO (02:05)
== END 2023-01-16 02:14 | disposition home or self-care (01) ==
PROVIDERS: Emergency Provider Physician Assistant; PCP Student in an Organized Health Care Education/Training Program
DX: L50.9 Urticaria, unspecified (principal); I48.20 Chronic atrial fibrillation, unspecified; J44.9 Chronic obstructive pulmonary disease, unspecified; I10 Essential (primary) hypertension; E78.00 Pure hypercholesterolemia, unspecified; E03.9 Hypothyroidism, unspecified; G20 Parkinson's disease; F32.A Depression, unspecified; Z86.16 Personal history of COVID-19; Z79.01 Long term (current) use of anticoagulants; Z95.5 Presence of coronary angioplasty implant and graft; Z90.49 Acquired absence of other specified parts of digestive tract; Z87.891 Personal history of nicotine dependence
CPT/HCPCS: 99283; A9270

== ENCOUNTER 2023-01-17 18:20 | Emergency (ER) | payer MEDICARE, SELFPAY ==
--- NOTE | ~2023-01-17 | CT_ITS ---
EXAMINATION: CT brain wo con DATE: 01/17/2023 21:30 INDICATION: Headache. Sudden onset. TECHNIQUE: Computed tomography (CT) of the head was performed without intravenous contrast. The dose- length product was 605.33 mGy-cm. Automated exposure control and iterative reconstruction technique w ere employed. COMPARISON: CT dated 11/21/2022 FINDINGS: Normal brain volume for age. There are scattered mild periventricular and subcortical white matter changes, most likely related to small vessel ischemic disease (microangiopathy). No ventricul omegaly or midline shift. There is mucosal thickening of the ethmoid and right frontal sinus. There a re surgical changes of the ostiomeatal units bilaterally. There is mucoperiosteal reaction of the sin uses. Mastoids are pneumatized. No depressed skull fractures. IMPRESSION: 1. No acute intracranial abnormality. 2: Chronic sinus disease. Reviewed, dictated and finalized at location A.
[2023-01-17 18:28] VITALS: BP 155/81; PULSE 81; RESP 16; TEMP 36.6; O2SAT 96
--- NOTE | 2023-01-17 18:31 | ECG_ITS ---
Measurements Intervals [place] Rate: 58 P: 143 [place]: 164 QRS: -23 QRSD: 88 T: -30 QT: 436 QTc: 430 Interpretive Statements ECTOPIC ATRIAL BRADYCARDIA POSSIBLE LEFT ATRIAL ENLARGEMENT [-0.1mV P WAVE IN V1/V2] T-WAVE ABNORMALITY CONSIDER ANTERIOR ISCHEMIA ABNORMAL ECG COMPARED TO ECG 11/21/2022 21:38:25 PRECORDIAL T-WAVE INVERSION IS MORE PRONOUNCED Electronically Signed On 01-18-2023 7:04:56 CDT by Ulices Murphy M.D.
[2023-01-17 18:53] LABS: Basophils Percent Auto 0.2 % (0.2-1.2); Eosinophils Absolute Auto 0.1 K/mm3 (0-0.3); Eosinophils Percent Auto 0.6 % (0-4.4); Hemoglobin 13.3 g/dL (12.0-15.0); Immature Granulocyte Absolute 0.03 K/mm3 (0.00-0.031); Immature Granulocyte Percent A 0.3 % (0-0.5); Immature Platelet Fraction Pct 3.7 % (0.9-11.2); Lymphocytes Absolute Auto 1.45 K/mm3 (0.9-3.2); Lymphocytes Percent Auto 15.5 % (18.3-44.2); Mean Corpuscular HGB Conc 33.3 g/dl (32-36); Mean Corpuscular Hemoglobin 29.9 pg (26-34); Mean Corpuscular Volume 89.9 fl (80-100); Mean Platelet Volume 9.9 fl (7.4-10.4); Monocytes Absolute Auto 0.5 K/mm3 (0.1-0.6); Monocytes Percent Auto 4.9 % (2.6-8.5); Neutrophils Absolute Auto 7.3 K/mm3 (1.3-6.7); Neutrophils Percent Auto 78.5 % (45.5-73.1); Platelet Count Result 110 k/mm3 (150-375); Red Blood Count 4.45 M/mm3 (4.2-5.4); Red Cell Distribution Width 13.4 % (11.5-14.5); White Blood Count 9.4 K/mm3 (4.5-10.0)
[2023-01-17 19:01] LABS: INR 1.2; Prothrombin Time 14.9 Seconds (11.1-14.7)
[2023-01-17 19:02] LABS: Partial Thromboplastin Time 29.1 SECONDS (22.3-36.8)
[2023-01-17 19:05] LABS: Alanine Aminotransferase 8 U/L (6-35); Albumin Level 4.1 g/dL (3.5-5.1); Alkaline Phosphatase 95 U/L (38-126); Anion Gap 3 mmol/L (8-16); Aspartate Amino Transferase 19 U/L (14-36); Bilirubin,Total 0.6 mg/dL (0.2-1.3); Blood Urea Nitrogen 10 mg/dL (7-17); Calcium 8.3 mg/dL (8.4-10.2); Carbon Dioxide 33 mmol/L (22-30); Chloride 100 mmol/L (98-107); Estimated CRCL calculation 68 ml/min; Estimated Glomerular Filt Rate > 60; Glucose 129 mg/dL (65-110); Lipase 43 U/L (23-300); Potassium 3.4 mmol/L (3.4-5.0); Sodium 136 mmol/L (137-145)
[2023-01-17 19:15] LABS: Troponin I < 0.012 ng/mL (0.000-0.034)
[2023-01-17 20:40] VITALS: BP 189/86; PULSE 54; RESP 11; TEMP 36.4; O2SAT 93
[2023-01-17 20:42] VITALS: O2SAT 93
[2023-01-17] MEDS: ACETAMINOPHEN 500 MG TABLET 1000 MG PO (21:36)
[2023-01-17] MEDS: PROCHLORPERAZINE EDISYLATE 10 MG/2 ML VIAL IV PUSH (21:57)
[2023-01-17] MEDS: SODIUM CHLORIDE 0.9% IV 1,000 ML 999 ML IV CONT (21:59)
[2023-01-17] MEDS: diphenhydrAMINE HCl INJ 50 MG/ML VIAL 25 MG IV PUSH (22:00)
[2023-01-17 22:32] VITALS: BP 198/82; PULSE 54; RESP 17; O2SAT 94
[2023-01-17 22:32] LABS: Troponin I < 0.012 ng/mL (0.000-0.034)
--- NOTE | 2023-01-17 23:10 | ED.GENADULT ---
HPI - General Adult General Chief complaint: Recheck/Abnormal Lab/Rx Stated complaint: high bp Time Seen by Provider: 01/17/23 20:44 History of Present Illness HPI narrative: This is a 78-year-old female presenting ED with a chief complaint of high blood pressure. The patient has been placed on several courses of Medrol Dosepak for a chronic rash that she has. Today she noticed that she felt flushed and had a headache that felt like a squeezing pain on top of her head. A 7 on 10 intensity and constant. This is her typical headache although she says that it was sudden in onset and maximal intensity. At this time the patient took her blood pressure at home and was 180/105. She then became concerned and came to hospital. She denies numbness tingling weakness in extremity. She denies chest pain difficulty breathing abdominal pain fever chills urinary symptoms or diarrhea Related Data Home Medications Medication Instructions Recorded Confirmed albuterol sulfate 90 mcg/actuation 2 puff inhalation PRN PRN 06/21/22 08/01/22 aerosol inhaler Shortness Of Breath Or Wheezing atorvastatin 20 mg tablet 20 mg PO DAILY 06/21/22 08/01/22 buspirone 15 mg tablet 15 mg PO DAILY 06/21/22 08/01/22 carbidopa 25 mg-levodopa 100 mg 1 tablet PO DAILY 06/21/22 08/01/22 tablet donepezil 5 mg tablet 5 mg PO DAILY 06/21/22 08/01/22 levothyroxine 25 mcg tablet 25 mcg PO DAILY 06/21/22 08/01/22 memantine 10 mg tablet 10 mg PO DAILY 06/21/22 08/01/22 oxybutynin chloride 5 mg tablet 5 mg PO DAILY 06/21/22 08/01/22 pantoprazole 40 mg tablet,delayed 40 mg PO DAILY 06/21/22 08/01/22 release rivaroxaban 20 mg tablet (Xarelto) 20 mg PO DAILY 06/21/22 08/01/22 Allergies Allergy/AdvReac Type Severity Reaction Status Date / Time Sulfa (Sulfonamide AdvReac Severe Seizure Verified 01/15/23 23:13 Antibiotics) bupropion [From Wellbutrin] AdvReac Intermediate Palpitation Verified 01/15/23 23:13 s oxycodone AdvReac Intermediate Jittery Verified 01/15/23 23:13 erythromycin base AdvReac Mild Hives Verified 01/15/23 23:13 metoclopramide [From Reglan] AdvReac Mild Hives Verified 01/15/23 23:13 Penicillins AdvReac Mild Hives Verified 01/15/23 23:13 [facility] Past Medical History Medical History Arthritis Asthma Chronic a-fib COVID-19 [id number] Elevated cholesterol History of COPD History of depression 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 patient is pleasant polite during the interview Head: atraumatic. EYES: EOMI, NOSE: Atraumatic NECK: Trachea midline RESPIRATORY: No increased rate of breathing, clear to auscultation CARDIOVASCULAR: RRR, bradycardic ABDOMINAL: Non-distended, soft nontender no guarding rebound MUSCULOSKELETAl: No obvious deformities NEURO: Alert. Cranial nerves 2-12 grossly intact. Sensation light touch, motor function cerebellar function intact for 4 extremities. Gait exam was normal. SKIN:: Warm, dry. Normal color PSYCHIATRIC: Normal affect Course Vital Signs Vital signs: Vital Signs Temperature 97.9 F 01/17/23 18:28 Pulse Rate 81 01/17/23 18:28 Respiratory Rate 16 01/17/23 18:28 Blood Pressure 155/81 H 01/17/23 18:28 Pulse Oximetry 96 01/17/23 18:28 Oxygen Delivery Room Air 01/17/23 18:28 Temperature 97.6 F 01/17/23 20:40 Pulse Rate 54 L 01/17/23 22:32 Respiratory Rate 17 01/17/23 22:32 Blood Pressure 198/82 H 01/17/23 22:32 Pulse Oximetr
[2023-01-17 23:36] VITALS: BP 187/89; PULSE 52; RESP 18; TEMP 36.4; O2SAT 93
== END 2023-01-17 23:37 | disposition home or self-care (01) ==
PROVIDERS: Emergency Medicine; Emergency Provider Emergency Medicine; PCP Student in an Organized Health Care Education/Training Program
DX: I10 Essential (primary) hypertension (principal); R51.9 Headache, unspecified; T38.0X5A Adverse effect of glucocorticoids and synthetic analogues, initial encounter; I48.20 Chronic atrial fibrillation, unspecified; J44.9 Chronic obstructive pulmonary disease, unspecified; E03.9 Hypothyroidism, unspecified; G20 Parkinson's disease; E78.00 Pure hypercholesterolemia, unspecified; Z86.16 Personal history of COVID-19; Z95.5 Presence of coronary angioplasty implant and graft; Z87.891 Personal history of nicotine dependence; Z79.01 Long term (current) use of anticoagulants
CPT/HCPCS: 36415; 70450; 80053; 83690; 84484; 85025; 85055; 85610; 85730; 93005; 96361; 96374; 96375; 99284; A9270; J0780; J1200; J7030

== ENCOUNTER 2023-02-27 13:01 | Emergency (ER) | payer MEDICARE, SELFPAY ==
--- NOTE | ~2023-02-27 | CT_ITS ---
EXAMINATION: CT abdomen pelvis w con DATE: 02/27/2023 15:57 INDICATION: Nausea and abdominal pain TECHNIQUE: Computed tomography (CT) of the abdomen and pelvis was performed with 100 mL Omnipaque-350 intravenous contrast. Automated exposure control and iterative reconstruction technique were employe d. The dose-length product was 640.49 mGy-cm. COMPARISON: None FINDINGS: Mild bibasilar atelectasis. Heart size is normal. Atherosclerotic coronary artery calcification is. N o pericardial or pleural effusion. Small sliding-type hiatal hernia. There are a few low-attenuation hepatic cysts the largest measuring up to 1.3 cm in the right hepatic lobe. Mild central intrahepatic biliary ductal dilation and mild dilation of the common bile duct, both findings within normal limit s post cholecystectomy with surgical clips the gallbladder fossa. No evident obstructing stones or ma sses. Spleen, pancreas, bilateral adrenal glands and left kidney are normal. 5 mm left renal cyst. Ma rked diverticulosis with sigmoid colon predominance without focal adjacent inflammatory stranding to suggest acute diverticulitis. No bowel obstruction. The appendix is not visualized. No pericecal infl ammatory change to suggest acute appendicitis. Bladder, uterus and bilateral adnexa are unremarkable. No free intraperitoneal gas or fluid. No pathologically enlarged abdominal or pelvic lymphadenopathy . Mild thoracolumbar dextrocurvature with severe right-sided disc height loss at L5-S1 and otherwise mild spondylosis of the more cephalad lumbar and lower thoracic spine. Mild bilateral hip osteoarthri tis. IMPRESSION: 1. No acute intra-abdominal/pelvic process. 2. Small sliding-type hiatal hernia. 3. Extensive diverticulosis. Reviewed, dictated and finalized at location A.
[2023-02-27 13:07] VITALS: BP 134/73; PULSE 77; RESP 16; TEMP 36.9; O2SAT 97
[2023-02-27 14:16] LABS: Basophils Percent Auto 0.3 % (0.2-1.2); Eosinophils Absolute Auto 0.1 K/mm3 (0-0.3); Eosinophils Percent Auto 1.9 % (0-4.4); Hematocrit 40.8 % (37.0-47.0); Hemoglobin 13.6 g/dL (12.0-15.0); Immature Granulocyte Absolute 0.02 K/mm3 (0.00-0.031); Immature Granulocyte Percent A 0.3 % (0-0.5); Immature Platelet Fraction Pct 3.2 % (0.9-11.2); Lymphocytes Absolute Auto 1.62 K/mm3 (0.9-3.2); Lymphocytes Percent Auto 28.3 % (18.3-44.2); Mean Corpuscular HGB Conc 33.3 g/dl (32-36); Mean Corpuscular Hemoglobin 30.5 pg (26-34); Mean Corpuscular Volume 91.5 fl (80-100); Mean Platelet Volume 9.8 fl (7.4-10.4); Monocytes Absolute Auto 0.4 K/mm3 (0.1-0.6); Monocytes Percent Auto 6.5 % (2.6-8.5); Neutrophils Absolute Auto 3.6 K/mm3 (1.3-6.7); Neutrophils Percent Auto 62.7 % (45.5-73.1); Platelet Count Result 92 k/mm3 (150-375); Red Blood Count 4.46 M/mm3 (4.2-5.4); Red Cell Distribution Width 13.2 % (11.5-14.5); White Blood Count 5.7 K/mm3 (4.5-10.0)
[2023-02-27 14:19] LABS: Appearance Urine Cloudy (Clear); Bacteria Urine None Seen /hpf; Bilirubin Urine Negative (Negative); Blood Urine Negative (Negative); Color Urine Yellow (Yellow); Glucose Urine UA Negative (Negative); Ketones Urine Trace mg/dL (Negative); Leukocyte Esterase Ur 1+ LEU/UL (Negative); Nitrate Urine Negative (Negative); Non Pathogenic Casts 0-2; Protein Urine Negative (Negative); RBC Urine 0-2 /hpf (0-2); Specific Grav Ur 1.022 (1.001-1.035); Squamous Epithelial Cell Urine Moderate /hpf (Few)
[2023-02-27 14:21] LABS: Add Urine Microscopic? YES
[2023-02-27 14:36] LABS: Alanine Aminotransferase 7 U/L (6-35); Albumin Level 3.8 g/dL (3.5-5.1); Alkaline Phosphatase 91 U/L (38-126); Anion Gap 2 mmol/L (8-16); Aspartate Amino Transferase 23 U/L (14-36); Bilirubin,Total 0.8 mg/dL (0.2-1.3); Blood Urea Nitrogen 20 mg/dL (7-17); Calcium 8.5 mg/dL (8.4-10.2); Carbon Dioxide 36 mmol/L (22-30); Chloride 100 mmol/L (98-107); Estimated CRCL calculation 92 ml/min; Estimated Glomerular Filt Rate > 60; Glucose 98 mg/dL (65-110); Lipase 52 U/L (23-300); Potassium 4.2 mmol/L (3.4-5.0); Sodium 138 mmol/L (137-145)
[2023-02-27] MEDS: SODIUM CHLORIDE 0.9% IV 1,000 ML 999 ML IV CONT (14:55)
[2023-02-27] MEDS: ONDANSETRON INJ 4 MG/2 ML VIAL IV PUSH (14:55)
[2023-02-27] MEDS: PANTOPRAZOLE SODIUM IV 40 MG VIAL IV PUSH (14:55)
[2023-02-27 15:44] VITALS: BP 151/75; PULSE 60
--- NOTE | 2023-02-27 15:59 | ED.NAVMDI ---
HPI - Nausea/Vomiting/Diarrhea General Chief complaint: Nausea/Vomiting/Diarrhea Stated complaint: nausea x 2 weeks, bowel impaction Time Seen by Provider: 02/27/23 13:27 Source: patient and RN notes reviewed Mode of arrival: ambulatory Limitations: no limitations History of Present Illness HPI Narrative: This is a 78 year old female who presents for evaluation of nausea for 2 weeks. She reports constant nausea for 2 weeks without vomiting. She was seen by PCP and prescribed zofran. she reports zofran is not helping so she quit taking. She also reports lower abdominal pain for 1 week. This pain is intermittent. She also states 4 days ago she felt like she was impacted. She reports having large stool ball , and she reports passing small amounts of stool since. She denies fever or chills.She reports poor appetite. Related Data Home Medications Medication Instructions Recorded Confirmed albuterol sulfate 90 mcg/actuation 2 puff inhalation PRN PRN 06/21/22 08/01/22 aerosol inhaler Shortness Of Breath Or Wheezing atorvastatin 20 mg tablet 20 mg PO DAILY 06/21/22 08/01/22 buspirone 15 mg tablet 15 mg PO DAILY 06/21/22 08/01/22 carbidopa 25 mg-levodopa 100 mg 1 tablet PO DAILY 06/21/22 08/01/22 tablet donepezil 5 mg tablet 5 mg PO DAILY 06/21/22 08/01/22 levothyroxine 25 mcg tablet 25 mcg PO DAILY 06/21/22 08/01/22 memantine 10 mg tablet 10 mg PO DAILY 06/21/22 08/01/22 oxybutynin chloride 5 mg tablet 5 mg PO DAILY 06/21/22 08/01/22 pantoprazole 40 mg tablet,delayed 40 mg PO DAILY 06/21/22 08/01/22 release rivaroxaban 20 mg tablet (Xarelto) 20 mg PO DAILY 06/21/22 08/01/22 Allergies Allergy/AdvReac Type Severity Reaction Status Date / Time Sulfa (Sulfonamide AdvReac Severe Seizure Verified 01/15/23 23:13 Antibiotics) bupropion [From Wellbutrin] AdvReac Intermediate Palpitation Verified 01/15/23 23:13 s oxycodone AdvReac Intermediate Jittery Verified 01/15/23 23:13 erythromycin base AdvReac Mild Hives Verified 01/15/23 23:13 metoclopramide [From Reglan] AdvReac Mild Hives Verified 01/15/23 23:13 Penicillins AdvReac Mild Hives Verified 01/15/23 23:13 Review of Systems Constitutional: Constitutional: Reports weakness Cardiovascular: Cardiovascular: Denies chest pain, Denies syncope, Denies rapid heart rate, Denies irregular heart rhythm, Denies leg edema and Denies dyspnea Respiratory: Respiratory: Denies chest congestion, Denies hemoptysis, Denies excessive phlegm production and Denies dyspnea Gastrointestinal: Gastrointestinal: Reports abdominal pain, Denies hematochezia, Reports constipation, Denies diarrhea, Reports nausea and Denies vomiting Genitourinary: Genitourinary: Denies hematuria and Denies dysuria Musculoskeletal: Musculoskeletal: Denies joint swelling, Denies loss of height and Denies muscle weakness Neurologic: Denies syncope, Denies focal weakness and Denies weakness PMFSH Past Medical History Medical History Arthritis Asthma Chronic a-fib COVID-19 [id number] Elevated cholesterol History of COPD History of depression 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 Hypertension Hypothyroidism Primary Parkinson's disease Surgical History Surgical History H/O heart artery stent H/O neck surgery H/O sinus surgery H/O tubal ligation Hx of appendectomy Hx of cholecystectomy Previous back surgery S/P tonsillectomy and adenoidectomy Social History Social History Smoking status: Former smoker Exam Const: General: no acute distress and alert Nutritional Appearance: well nourished Orientation/consciousness: patient oriented x3 Limitations: no limitations HENMT: Head: normal to inspection Eyes: Pupils: Equal, round and reactive pupils present EOM: EOMs intact bilaterally Neck: Neck: normal visual inspection Chest:
[2023-02-27 16:03] VITALS: BP 157/72; PULSE 64
[2023-02-27 16:05] VITALS: BP 134/84; PULSE 74
[2023-02-27] MEDS: CEPHALEXIN 500 MG CAPSULE PO (17:22)
[2023-02-27] MEDS: PROCHLORPERAZINE EDISYLATE 10 MG/2 ML VIAL IV PUSH (17:22)
[2023-02-27 19:00] VITALS: BP 133/68; PULSE 96; RESP 12; O2SAT 97
== END 2023-02-27 19:02 | disposition home or self-care (01) ==
PROVIDERS: Emergency Provider General Practice; PCP Student in an Organized Health Care Education/Training Program
DX: N39.0 Urinary tract infection, site not specified (principal); E86.0 Dehydration; R11.0 Nausea; G20 Parkinson's disease; I48.20 Chronic atrial fibrillation, unspecified; I10 Essential (primary) hypertension; J44.9 Chronic obstructive pulmonary disease, unspecified; E78.00 Pure hypercholesterolemia, unspecified; E03.9 Hypothyroidism, unspecified; Z95.5 Presence of coronary angioplasty implant and graft; Z86.16 Personal history of COVID-19; Z87.891 Personal history of nicotine dependence; Z90.49 Acquired absence of other specified parts of digestive tract; Z79.01 Long term (current) use of anticoagulants; K57.90 Diverticulosis of intestine, part unspecified, without perforation or abscess without bleeding; K44.9 Diaphragmatic hernia without obstruction or gangrene
CPT/HCPCS: 36415; 74177; 80053; 81001; 83690; 85025; 85055; 87086; 87088; 96361; 96374; 96375; 99284; A9270; C9113; J0780; J2405; J7030; Q9967

== ENCOUNTER → 2023-03-04 12:51 | Outpatient (CLI) | payer MEDICARE, SELFPAY ==
--- NOTE | ~2023-03-04 | DEXA_ITS ---
Bone Density Report Name: GEORGE WADE Age: 78 Sex: Female Ethnicity: White Date of : 1945 Indication: postmenopausal; screening for osteoporosis; cancer; anorexia or bulimia; seizure disorder; asthma or emphysema; Referring Provider: Nithya, Marko Study: Bone densitometry was performed. Exam Date: March 04, 2023 Accession number: [id number] Bone Density: Region BMD T-score Z-score Classification AP Spine (L1-L4) 0.857 -1.7 0.9 Osteopenia Femoral Neck (Left) 0.595 -2.3 0.0 Osteopenia Total Hip (Left) 0.728 -1.8 0.3 Osteopenia Femoral Neck (Right) 0.613 -2.1 0.1 Osteopenia Total Hip (Right) 0.659 -2.3 -0.3 Osteopenia Total Hip Mean 0.694 -2.1 0.0 Osteopenia World Health Organization criteria for BMD impression classify patients as: Normal (T-score at or above -1.0), Osteopenia (T-score between -1.0 and -2.5), or Osteoporosis (T-score at or below -2.5). 10-year Fracture Risk(1): Major Osteoporotic Fracture 17% Hip Fracture 5.2% Reported Risk Factors: [place] (), Neck BMD=0.595, BMI=27.6 (1) FRAX(R) Version 3.08. Fracture probability calculated for an untreated patient. Fracture probability may be lower if the patient has received treatment. Clinical Information Provided by Patient: Has the following medical conditions: Anorexia or Bulimia, Any Seizure Disorders, Asthma or Emphysema, Cancer Patient maximum height was 66 Menopause Age: 49 No regular weight bearing exercise Onset of menses at age 12 Number of children 2 Impression: The patient has low bone mass, based on the Right Total Hip T-score. The patient has an estimated ten-year risk of hip fracture of 5.2% and an estimated ten-year risk of major fracture of 17%, based on the WHO FRAX algorithm. Discussion: BONE DENSITY IS LOW AT ONE OR MORE SKELETAL SITES. THE PATIENT'S BMD AND CLINICAL RISK FACTORS CONTRIBUTE TO THIS PATIENT'S INCREASED RISK OF FRACTURE. This patient's lowest T-score is low at one or more skeletal sites. It meets the World Health Organization's (WHO) criteria for ?low bone mass? (T-score between -1.0 and -2.5). The patient's 10-year risk of hip fracture as calculated by FRAX exceeds the threshold where pharmacological therapy is recommended by the National Osteoporosis Foundation (NOF). However, all treatment decisions require clinical judgment and consideration of individual patient factors, including patient preferences, comorbidities, previous drug use, risk factors not captured in the FRAX model (e.g., frailty, falls, vitamin D deficiency, increased bone turnover, interval significant decline in bone density) and possible under or overestimation of fracture risk by FRAX. The patient should follow a healthful lifestyle (good nutrition with adequate calcium and vitamin D, and appropriate weigh
== END ==
PROVIDERS: PCP Student in an Organized Health Care Education/Training Program; Visit Provider Student in an Organized Health Care Education/Training Program
DX: Z78.0 Asymptomatic menopausal state (principal); M85.88 Other specified disorders of bone density and structure, other site; M85.852 Other specified disorders of bone density and structure, left thigh; M85.851 Other specified disorders of bone density and structure, right thigh
CPT/HCPCS: 77080

== ENCOUNTER 2023-03-23 14:03 | Emergency (ER) | payer MEDICARE, SELFPAY ==
--- NOTE | ~2023-03-23 | XR_ITS ---
EXAMINATION: XR chest 2V DATE: 03/23/2023 14:33 INDICATION: Weakness. Hypertension. TECHNIQUE: frontal and lateral views of the chest were obtained. COMPARISON: Chest radiograph dated 11/21/2022 FINDINGS: The lungs remain clear with no focal airspace opacities, pulmonary edema, pleural effusion or pneumot horax. Arch size is normal. Small left pericardial fat pad. Mild to moderate thoracic spondylosis. Pa rtially visualized plate and screw fixation for lower cervical anterior spinal fusion. IMPRESSION: 1. No acute cardiopulmonary disease. Reviewed, dictated and finalized at location A.
[2023-03-23 14:05] VITALS: BP 140/83; PULSE 64; RESP 13; TEMP 36.5; O2SAT 97
--- NOTE | 2023-03-23 14:09 | ECG_ITS ---
Measurements Intervals [place] Rate: 64 P: 69 [place]: 158 QRS: 19 QRSD: 86 T: 38 QT: 436 QTc: 450 Interpretive Statements SINUS RHYTHM POSSIBLE RIGHT VENTRICULAR CONDUCTION DELAY [RSR (QR) IN V1/V2] ANTERIOR T-WAVE CHANGES; CONSIDER ISCHEMIA, IMPROVED COMPARED TO THE PRIOR TRACING COMPARED TO ECG 01/17/2023 18:34:[address] AND T CHANGES HAVE IMPROVED SOMEWHAT Electronically Signed On 03-23-2023 19:57:11 CDT by Leatha Renteria M.D.
[2023-03-23 14:15] VITALS: RESP 18; O2SAT 96
[2023-03-23 14:23] LABS: Basophils Percent Auto 0.5 % (0.2-1.2); Eosinophils Absolute Auto 0.1 K/mm3 (0-0.3); Eosinophils Percent Auto 1.7 % (0-4.4); Hematocrit 39.9 % (37.0-47.0); Immature Granulocyte Absolute 0.02 K/mm3 (0.00-0.031); Immature Granulocyte Percent A 0.3 % (0-0.5); Immature Platelet Fraction Pct 3.1 % (0.9-11.2); Lymphocytes Absolute Auto 1.57 K/mm3 (0.9-3.2); Lymphocytes Percent Auto 24.2 % (18.3-44.2); Mean Corpuscular HGB Conc 32.6 g/dl (32-36); Mean Corpuscular Hemoglobin 30.4 pg (26-34); Mean Corpuscular Volume 93.2 fl (80-100); Mean Platelet Volume 9.9 fl (7.4-10.4); Monocytes Absolute Auto 0.5 K/mm3 (0.1-0.6); Monocytes Percent Auto 7.5 % (2.6-8.5); Neutrophils Absolute Auto 4.3 K/mm3 (1.3-6.7); Neutrophils Percent Auto 65.8 % (45.5-73.1); Platelet Count Result 133 k/mm3 (150-375); Red Blood Count 4.28 M/mm3 (4.2-5.4); Red Cell Distribution Width 12.7 % (11.5-14.5); White Blood Count 6.5 K/mm3 (4.5-10.0)
[2023-03-23 14:41] LABS: Alanine Aminotransferase 17 U/L (6-35); Alkaline Phosphatase 72 U/L (38-126); Anion Gap 3 mmol/L (8-16); Aspartate Amino Transferase 28 U/L (14-36); Bilirubin,Total 0.6 mg/dL (0.2-1.3); Blood Urea Nitrogen 13 mg/dL (7-17); Calcium 8.6 mg/dL (8.4-10.2); Carbon Dioxide 34 mmol/L (22-30); Chloride 100 mmol/L (98-107); Estimated CRCL calculation 71 ml/min; Estimated Glomerular Filt Rate > 60; Glucose 102 mg/dL (65-110); Potassium 3.9 mmol/L (3.4-5.0); Sodium 137 mmol/L (137-145)
[2023-03-23 15:06] LABS: Appearance Urine Clear (Clear); Bilirubin Urine Negative (Negative); Blood Urine Negative (Negative); Color Urine Yellow (Yellow); Glucose Urine UA Negative (Negative); Ketones Urine Negative (Negative); Leukocyte Esterase Ur Negative LEU/UL (Negative); Nitrate Urine Negative (Negative); Protein Urine Negative (Negative); Urobilinogen Urine 0.2 mg/dL (<2.0)
[2023-03-23 15:09] LABS: Add Urine Microscopic? NO
[2023-03-23 15:11] VITALS: BP 142/70; PULSE 60; RESP 18; O2SAT 97
--- NOTE | 2023-03-23 16:30 | ED.GENADULT ---
HPI - General Adult General Chief complaint: Recheck/Abnormal Lab/Rx Stated complaint: low BP Time Seen by Provider: 03/23/23 14:06 History of Present Illness HPI narrative: Patient is a 78-year-old female who presents ER for low blood pressure. Apparently she was at her PCPs office prior to arrival here and had low blood pressures in the 80s and 90s. Patient reports over the weekend she had been outside and felt fatigued. She had an evening of night sweats where she had to take off her clothes. She reports some urinary frequency and mild dysuria. Feels well at this time. No chest pain no trouble or chest pressure. She is without abdominal pain/nausea/vomiting/diarrhea. Related Data Home Medications Medication Instructions Recorded Confirmed albuterol sulfate 90 mcg/actuation 2 puff inhalation PRN PRN 06/21/22 03/18/23 aerosol inhaler Shortness Of Breath Or Wheezing atorvastatin 20 mg tablet 20 mg PO DAILY 06/21/22 03/18/23 buspirone 15 mg tablet 15 mg PO DAILY 06/21/22 03/18/23 carbidopa 25 mg-levodopa 100 mg 1 tablet PO DAILY 06/21/22 03/18/23 tablet donepezil 5 mg tablet 5 mg PO DAILY 06/21/22 03/18/23 levothyroxine 25 mcg tablet 25 mcg PO DAILY 06/21/22 03/18/23 memantine 10 mg tablet 10 mg PO DAILY 06/21/22 03/18/23 oxybutynin chloride 5 mg tablet 5 mg PO DAILY 06/21/22 03/18/23 pantoprazole 40 mg tablet,delayed 40 mg PO DAILY 06/21/22 03/18/23 release rivaroxaban 20 mg tablet (Xarelto) 20 mg PO DAILY 06/21/22 03/18/23 Allergies Allergy/AdvReac Type Severity Reaction Status Date / Time Sulfa (Sulfonamide AdvReac Severe Seizure Verified 03/23/23 14:14 Antibiotics) bupropion [From Wellbutrin] AdvReac Intermediate Palpitation Verified 03/23/23 14:14 s oxycodone AdvReac Intermediate Jittery Verified 03/18/23 10:46 erythromycin base AdvReac Mild Hives Verified 03/23/23 14:14 metoclopramide [From Reglan] AdvReac Mild Hives Verified 03/23/23 14:14 Penicillins AdvReac Mild Hives Verified 03/23/23 14:14 Review of Systems Review of Systems: All systems reviewed & are unremarkable except as noted in HPI and below Constitutional: Constitutional: Denies chills, Reports fatigue and Reports fever(s) ENT: Denies nasal congestion and Denies sore throat Cardiovascular: Cardiovascular: Denies chest pain, Denies rapid heart rate and Denies radiating jaw, neck or arm pain Respiratory: Respiratory: Denies cough and Denies dyspnea Gastrointestinal: Gastrointestinal: Denies abdominal pain, Denies nausea and Denies vomiting Genitourinary: Genitourinary: Denies hematuria, Reports nocturia and Reports dysuria Neurologic: Denies focal weakness and Denies numbness PMFSH Past Medical History Medical History (Updated 03/23/23 @ 16:31 by John Boss MD) Arthritis Asthma Chronic a-fib COVID-19 [id number] Elevated cholesterol GERD (gastroesophageal reflux disease) History of COPD History of depression 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 HEAD: Normocephalic, atraumatic. ENT: Mucous membranes moist. CHEST: Clear to auscultation. No respiratory distress. HEART: Regular rate and rhythm. Normal peripheral pulses. ABDOMEN: Soft, nontender, nondistended. EXTREMITIES: Normal range of motion. No edema. SKIN: Warm, dry, no rash. NEURO: Alert and oriented x3. PSYCH: Normal mood and affect. Course Course Emergency Cours
[2023-03-23 16:44] VITALS: BP 136/67; PULSE 67; RESP 17; O2SAT 97
== END 2023-03-23 16:46 | disposition home or self-care (01) ==
PROVIDERS: Emergency Provider Emergency Medicine; PCP Student in an Organized Health Care Education/Training Program
DX: Z03.89 Encounter for observation for other suspected diseases and conditions ruled out (principal); I48.20 Chronic atrial fibrillation, unspecified; G20 Parkinson's disease; I10 Essential (primary) hypertension; E78.00 Pure hypercholesterolemia, unspecified; J45.909 Unspecified asthma, uncomplicated; E03.9 Hypothyroidism, unspecified; M19.90 Unspecified osteoarthritis, unspecified site; K21.9 Gastro-esophageal reflux disease without esophagitis; F32.A Depression, unspecified; Z95.5 Presence of coronary angioplasty implant and graft; Z86.16 Personal history of COVID-19; Z87.891 Personal history of nicotine dependence; Z90.49 Acquired absence of other specified parts of digestive tract; Z79.01 Long term (current) use of anticoagulants; R94.31 Abnormal electrocardiogram [ECG] [EKG]
CPT/HCPCS: 36415; 71046; 80053; 81003; 85025; 85055; 93005; 99283

== ENCOUNTER 2023-04-22 00:09 | Day surgery (SDC) | payer MEDICARE, SELFPAY ==
[2023-04-11 14:57] VITALS: BMI 27.6
--- NOTE | 2023-04-22 08:06 | WPDANESEPPF ---
Anes - Initial Pre Proc Eval Procedure: Operation Date: 04/22/23 10:15 Proposed Procedures p Esophagogastroduodenoscopy - Lawrence Walls MD Date/Time: 04/22/23 08:06 Surgeon: Lawrence Walls MD Pre Op Diagnosis: GERD, Dysphagia Patient Data Age: 78 Gender: F Height: 1.68 m Weight: 77.8 kg Allergies Allergy/AdvReac Type Severity Reaction Status Date / Time Sulfa (Sulfonamide AdvReac Severe Seizure Verified 04/11/23 14:58 Antibiotics) bupropion [From Wellbutrin] AdvReac Intermediate Palpitation Verified 04/11/23 14:58 s oxycodone AdvReac Intermediate Jittery Verified 04/11/23 14:58 erythromycin base AdvReac Mild Hives Verified 04/11/23 14:58 metoclopramide [From Reglan] AdvReac Mild Hives Verified 04/11/23 14:58 Penicillins AdvReac Mild Hives Verified 04/11/23 14:58 Home Medications Medication Instructions Recorded Confirmed Type albuterol sulfate 90 mcg/actuation 2 puff inhalation PRN PRN 06/21/22 04/11/23 History aerosol inhaler Shortness Of Breath Or Wheezing atorvastatin 20 mg tablet 20 mg PO DAILY 06/21/22 04/11/23 History buspirone 15 mg tablet 15 mg PO DAILY 06/21/22 04/11/23 History carbidopa 25 mg-levodopa 100 mg 1 tablet PO BID 06/21/22 04/11/23 History tablet levothyroxine 25 mcg tablet 25 mcg PO DAILY 06/21/22 04/11/23 History oxybutynin chloride 5 mg tablet 5 mg PO DAILY 06/21/22 04/11/23 History pantoprazole 40 mg tablet,delayed 40 mg PO DAILY 06/21/22 04/11/23 History release rivaroxaban 20 mg tablet (Xarelto) 20 mg PO DAILY 06/21/22 04/11/23 History betamethasone dipropionate 0.05 % 1 applic topical BID PRN skin 01/16/23 04/11/23 Rx topical cream irritation #15 grams levetiracetam 750 mg tablet 750 mg PO BID 04/11/23 04/11/23 History montelukast 10 mg tablet 10 mg PO DAILY 04/11/23 04/11/23 History sertraline 100 mg tablet 150 mg PO DAILY 04/11/23 04/11/23 History vibegron 75 mg tablet (Gemtesa) 75 mg PO DAILY 04/11/23 04/11/23 History Patient hx anesthesia problems: none Family hx anesthesia problems: none Results Review: All pre-operative results and documents have been reviewed as part of the pre-operative evaluation. 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 Hypertension Hypothyroidism Primary Parkinson's disease Seizure Surgical History Surgical History H/O heart artery stent H/O neck surgery H/O sinus surgery H/O tubal ligation Hx of appendectomy Hx of cholecystectomy Previous back surgery S/P tonsillectomy and adenoidectomy Social History Social History Smoking status: Former smoker Tobacco type: cigarettes Alcohol intake: never Substance use: never Substance use type: does not use Living arrangements: alone Spiritual care concerns: No Anes - Eval Final PreProcedure Day of Procedure 04/22/23 08:06 Patient weight: overweight Heart: regular rate and rhythm Lungs: clear to auscultation and normal air movement Airway: Mallampati scale class II Neurological: alert and oriented Last oral intake: >/= 8 hours ASA classification: III Emergent: no Anesthetic plan: proceed Anesthesia type and monitoring: general GIVS Results Review: All pre-operative results and documents have been reviewed as part of the pre-operative evaluation. Informed Consent: The patient's anesthetic plan and its attendant risks and benefits were discussed with the patient/family/POA. Questions were solicited and answers provided to the satisfaction of the patient/family/POA.
[2023-04-22 09:14] VITALS: BP 140/68; PULSE 87; RESP 20; TEMP 36.1; O2SAT 94
[2023-04-22] MEDS: LACTATED RINGERS 1,000 ML 150 ML IV CONT (09:25)
--- NOTE | 2023-04-22 09:49 | PM.HPGS ---
History of Present Illness History of Present Illness Consent: Risks, benefits, and alternatives have been discussed and questions answered. Patient agrees to proceed with procedure. Chief complaint: GERD, Dysphagia Narrative: Belkis Romero is a 78 year old female Complains of difficulty swallowing. She states that pills in large pieces of food catching her throat. She subsequently develops a large amount of phlegm. 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 She presents today for follow-up EGD and dilatation. Patient currently being treated for underlying her acid reflux. She currently denies any dysphagia on therapy. Medications include pantoprazole 40mg p.o. daily. Patient denies weight loss currently. Family history noncontributory. Patient does take Xarelto which is on hold for the procedure. Review of Systems Review of Systems: Review of systems noncontributory. 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 Hypertension Hypothyroidism Primary Parkinson's disease Seizure Surgical History Surgical History H/O heart artery stent H/O neck surgery H/O sinus surgery H/O tubal ligation Hx of appendectomy Hx of cholecystectomy Previous back surgery S/P tonsillectomy and adenoidectomy Social History Social History Smoking status: Former smoker Tobacco type: cigarettes Alcohol intake: never Substance use: never Substance use type: does not use Living arrangements: alone Spiritual care concerns: No Meds Home Medications and Allergies Home Medications Medication Instructions Recorded Confirmed Type albuterol sulfate 90 mcg/actuation 2 puff inhalation PRN PRN 06/21/22 04/11/23 History aerosol inhaler Shortness Of Breath Or Wheezing atorvastatin 20 mg tablet 20 mg PO DAILY 06/21/22 04/11/23 History buspirone 15 mg tablet 15 mg PO DAILY 06/21/22 04/11/23 History carbidopa 25 mg-levodopa 100 mg 1 tablet PO BID 06/21/22 04/11/23 History tablet levothyroxine 25 mcg tablet 25 mcg PO DAILY 06/21/22 04/11/23 History oxybutynin chloride 5 mg tablet 5 mg PO DAILY 06/21/22 04/11/23 History pantoprazole 40 mg tablet,delayed 40 mg PO DAILY 06/21/22 04/11/23 History release rivaroxaban 20 mg tablet (Xarelto) 20 mg PO DAILY 06/21/22 04/22/23 History betamethasone dipropionate 0.05 % 1 applic topical BID PRN skin 01/16/23 04/11/23 Rx topical cream irritation #15 grams levetiracetam 750 mg tablet 750 mg PO BID 04/11/23 04/11/23 History montelukast 10 mg tablet 10 mg PO DAILY 04/11/23 04/11/23 History sertraline 100 mg tablet 150 mg PO DAILY 04/11/23 04/11/23 History vibegron 75 mg tablet (Gemtesa) 75 mg PO DAILY 04/11/23 04/11/23 History Allergies Allergy/AdvReac Type Severity Reaction Status Date / Time Sulfa (Sulfonamide AdvReac Severe Seizure Verified 04/11/23 14:58 Antibiotics) bupropion [From Wellbutrin] AdvReac Intermediate Palpitation Verified 04/11/23 14:58 s oxycodone AdvReac Intermediate Jittery Verified 04/11/23 14:58 erythromycin base AdvReac Mild Hives Verified 04/11/23 14:58 metoclopramide [From Reglan] AdvReac Mild Hives Verified 04/11/23 14:58 Penicillins AdvReac Mild Hives Verified 04/11/23 14:58 Vital Signs Vital Signs - 24 hr 04/22/23 09:14 Temperature 97 F L Pulse Rate 87 Respiratory Rate 20 Blood Pressure 140/68 Pulse Oximetry 94 Oxygen Delivery Room Air Exam Narrative: Physical exam reveals patient to be alert. vital signs stable. HEENT exam reveals no icterus. Lungs are clear. Heart
[2023-04-22 10:13] VITALS: BP 141/73; PULSE 63; RESP 18; O2SAT 100
[2023-04-22 10:23] VITALS: BP 145/80; PULSE 57; RESP 17; O2SAT 100
== END 2023-04-22 10:38 | disposition home or self-care (01) ==
PROVIDERS: PCP Student in an Organized Health Care Education/Training Program; Visit Provider Internal Medicine Gastroenterology
PROC: 0DJ08ZZ Inspection of Upper Intestinal Tract, Via Natural or Artificial Opening Endoscopic (ICD-10-PCS; CPT 43235; principal; 2023-04-22 10:15)
DX: R13.10 Dysphagia, unspecified (principal); K21.9 Gastro-esophageal reflux disease without esophagitis; I25.10 Atherosclerotic heart disease of native coronary artery without angina pectoris; I48.21 Permanent atrial fibrillation; J44.9 Chronic obstructive pulmonary disease, unspecified; E78.00 Pure hypercholesterolemia, unspecified; I10 Essential (primary) hypertension; G20 Parkinson's disease; E03.9 Hypothyroidism, unspecified; G40.909 Epilepsy, unspecified, not intractable, without status epilepticus; F32.A Depression, unspecified; Z86.73 Personal history of transient ischemic attack (TIA), and cerebral infarction without residual deficits; Z95.5 Presence of coronary angioplasty implant and graft; Z87.891 Personal history of nicotine dependence; Z79.51 Long term (current) use of inhaled steroids; Z79.01 Long term (current) use of anticoagulants
CPT/HCPCS: 43450; 43235; J2704; J7120

== ENCOUNTER 2023-07-26 11:38 | Emergency (ER) | payer MEDICARE, SELFPAY ==
[2023-07-26 11:39] VITALS: BP 117/63; PULSE 63; RESP 20; TEMP 37; O2SAT 96
--- NOTE | 2023-07-26 14:23 | PC.NURSE ---
Hematoma smaller in size. Ant wrap reapplied. Pt voicing frustration that she has been here for 3 hours. Educated pt that people are treated by severity. Offered to make her stay more comfortable. Pt denies any comfort measures needed.
--- NOTE | 2023-07-26 14:44 | ED.WOUNDLAC ---
HPI - Wound/Laceration General Chief Complaint: Wound/Laceration Stated Complaint: knife to L ankle Time Seen by Provider: 07/26/23 13:43 History of Present Illness HPI narrative: Patient is a 78-year-old female presenting with laceration. Patient states that she was trying to open a package of medication she was using a paring knife. She had rested on her legs and was busy with something else when it fell and landed on her left ankle. She sustained a laceration and hematoma. She is unsure on tetanus status. No further injuries or complaints. Related Data Home Medications Medication Instructions Recorded Confirmed albuterol sulfate 90 mcg/actuation 2 puff inhalation PRN PRN 06/21/22 04/11/23 aerosol inhaler Shortness Of Breath Or Wheezing atorvastatin 20 mg tablet 20 mg PO DAILY 06/21/22 04/11/23 buspirone 15 mg tablet 15 mg PO DAILY 06/21/22 04/11/23 carbidopa 25 mg-levodopa 100 mg 1 tablet PO BID 06/21/22 04/11/23 tablet levothyroxine 25 mcg tablet 25 mcg PO DAILY 06/21/22 04/11/23 oxybutynin chloride 5 mg tablet 5 mg PO DAILY 06/21/22 04/11/23 pantoprazole 40 mg tablet,delayed 40 mg PO DAILY 06/21/22 04/11/23 release rivaroxaban 20 mg tablet (Xarelto) 20 mg PO DAILY 06/21/22 04/22/23 levetiracetam 750 mg tablet 750 mg PO BID 04/11/23 04/11/23 montelukast 10 mg tablet 10 mg PO DAILY 04/11/23 04/11/23 sertraline 100 mg tablet 150 mg PO DAILY 04/11/23 04/11/23 vibegron 75 mg tablet (Gemtesa) 75 mg PO DAILY 04/11/23 04/11/23 Allergies Allergy/AdvReac Type Severity Reaction Status Date / Time Sulfa (Sulfonamide AdvReac Severe Seizure Verified 04/11/23 14:58 Antibiotics) bupropion [From Wellbutrin] AdvReac Intermediate Palpitation Verified 04/11/23 14:58 s oxycodone AdvReac Intermediate Jittery Verified 04/11/23 14:58 erythromycin base AdvReac Mild Hives Verified 04/11/23 14:58 metoclopramide [From Reglan] AdvReac Mild Hives Verified 04/11/23 14:58 Penicillins AdvReac Mild Hives Verified 04/11/23 14:58 Review of Systems Review of Systems: All systems reviewed & are unremarkable except as noted in HPI and below PMFSH Past Medical History Medical History Arthritis Asthma CAD (coronary artery disease) Chronic a-fib COVID-19 [id number] CVA (cerebral vascular accident) Elevated cholesterol GERD (gastroesophageal reflux disease) History of COPD History of depression 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 HEAD: Normocephalic, atraumatic. EYES: PERRLA and EOMI. ENT: Grossly unremarkable NECK: Supple. CHEST: No respiratory distress. HEART: Regular rate and rhythm. Normal peripheral pulses. ABDOMEN: Nondistended EXTREMITIES: Normal range of motion. No edema. SKIN: Warm, dry. 1.5 cm V shaped laceration on anterior left ankle/dorsal foot NEURO: Alert and oriented x3. PSYCH: Normal mood and affect. Course Vital Signs Vital signs: Vital Signs Temperature 98.6 F 07/26/23 11:39 Pulse Rate 63 07/26/23 11:39 Respiratory Rate 20 07/26/23 11:39 Blood Pressure 117/63 07/26/23 11:39 Pulse Oximetry 96 07/26/23 11:39 Oxygen Delivery Room Air 07/26/23 11:39 Temperature 98.6 F 07/26/23 11:39 Pulse Rate 78
[2023-07-26] MEDS: LIDOCAINE HCL 1% LOCAL INJ 10 ML VIAL 5 ML INFILTRATE (14:53)
[2023-07-26] MEDS: TETANUS,DIPHTHERIA,AC PERTUSSIS ADULT (0.5 ML) BOOSTRIX IM (14:54)
[2023-07-26] MEDS: ACETAMINOPHEN 500 MG TABLET 1000 MG PO (14:55)
--- NOTE | 2023-07-26 15:02 | PC.NURSE ---
Laceration irrigated with normal saline. Pt tolerated well.
[2023-07-26 15:04] VITALS: BP 120/77; PULSE 78; RESP 20; O2SAT 99
--- NOTE | 2023-07-26 15:50 | PC.NURSE ---
x2 sutures to laceration. wound covered with telfa & kojo. Slipper socks given
== END 2023-07-26 15:53 | disposition home or self-care (01) ==
PROVIDERS: Emergency Provider Emergency Medicine; PCP Student in an Organized Health Care Education/Training Program
DX: S91.012A Laceration without foreign body, left ankle, initial encounter (principal); W26.0XXA Contact with knife, initial encounter; M19.90 Unspecified osteoarthritis, unspecified site; J45.909 Unspecified asthma, uncomplicated; I25.10 Atherosclerotic heart disease of native coronary artery without angina pectoris; I48.91 Unspecified atrial fibrillation; K21.9 Gastro-esophageal reflux disease without esophagitis; F32.A Depression, unspecified; E03.9 Hypothyroidism, unspecified; I10 Essential (primary) hypertension; G20.A1 Parkinson's disease without dyskinesia, without mention of fluctuations; Z23 Encounter for immunization
CPT/HCPCS: 12001; 90471; 90715; 99282; A9270

== ENCOUNTER 2023-08-02 13:18 | Emergency (ER) | payer MEDICARE, SELFPAY ==
[2023-08-02 13:31] VITALS: BP 146/77; PULSE 60; RESP 16; TEMP 36.3; O2SAT 98
--- NOTE | 2023-08-02 14:05 | ED.WOUNDLAC ---
HPI - Wound/Laceration General Chief Complaint: Wound/Laceration Stated Complaint: Wound Check Time Seen by Provider: 08/02/23 14:05 Source: patient Mode of arrival: ambulatory Limitations: no limitations History of Present Illness HPI narrative: 78-year-old female presented for wound check. States she has a laceration with [address] to the left inner ankle after injury on 07/26 when she dropped a knife onto the ankle. States at the time she developed a large hematoma, which has since improved. Now reports ankle swelling and bruising around the site of the injury and down to the foot. States the ankle has been warm to touch. Denies numbness, tingling or weakness, denies decreased ROM to the ankle. Taking Xarelto. Related Data Home Medications Medication Instructions Recorded Confirmed albuterol sulfate 90 mcg/actuation 2 puff inhalation PRN PRN 06/21/22 08/02/23 aerosol inhaler Shortness Of Breath Or Wheezing atorvastatin 20 mg tablet 20 mg PO DAILY 06/21/22 08/02/23 buspirone 15 mg tablet 15 mg PO DAILY 06/21/22 08/02/23 carbidopa 25 mg-levodopa 100 mg 1 tablet PO BID 06/21/22 08/02/23 tablet levothyroxine 25 mcg tablet 25 mcg PO DAILY 06/21/22 08/02/23 oxybutynin chloride 5 mg tablet 5 mg PO DAILY 06/21/22 08/02/23 pantoprazole 40 mg tablet,delayed 40 mg PO DAILY 06/21/22 08/02/23 release rivaroxaban 20 mg tablet (Xarelto) 20 mg PO DAILY 06/21/22 08/02/23 levetiracetam 750 mg tablet 750 mg PO BID 04/11/23 08/02/23 montelukast 10 mg tablet 10 mg PO DAILY 04/11/23 08/02/23 sertraline 100 mg tablet 150 mg PO DAILY 04/11/23 08/02/23 vibegron 75 mg tablet (Gemtesa) 75 mg PO DAILY 04/11/23 08/02/23 donepezil 10 mg tablet 10 mg PO DAILY 08/02/23 08/02/23 famotidine 20 mg tablet 20 mg PO DAILY 08/02/23 08/02/23 rabeprazole 20 mg tablet,delayed 20 mg PO DAILY 08/02/23 08/02/23 release Allergies Allergy/AdvReac Type Severity Reaction Status Date / Time Sulfa (Sulfonamide AdvReac Severe Seizure Verified 08/02/23 13:41 Antibiotics) bupropion [From Wellbutrin] AdvReac Intermediate Palpitation Verified 08/02/23 13:41 s oxycodone AdvReac Intermediate Jittery Verified 08/02/23 13:41 erythromycin base AdvReac Mild Hives Verified 08/02/23 13:41 metoclopramide [From Reglan] AdvReac Mild Hives Verified 08/02/23 13:41 Penicillins AdvReac Mild Hives Verified 08/02/23 13:41 Review of Systems Review of Systems: CONSTITUTIONAL: Denies body aches, fever, chills, or sweats. EYES: Denies visual changes, redness, or discharge. ENT: Denies rhinorrhea, congestion CARDIOVASCULAR: Denies chest pain, palpitations, or edema. RESPIRATORY: Denies cough or dyspnea. GASTROINTESTINAL: Denies abdominal pain, nausea, vomiting, or diarrhea. SKIN: laceration to left ankle, bruising and swelling MUSCULOSKELETAL: Denies back pain, joint pain, or myalgia. NEUROLOGIC: Denies headache, numbness, tingling, or weakness. 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
== END 2023-08-02 14:28 | disposition home or self-care (01) ==
PROVIDERS: Emergency Provider Nurse Practitioner Family; PCP Student in an Organized Health Care Education/Training Program
DX: S91.012D Laceration without foreign body, left ankle, subsequent encounter (principal); W26.0XXD Contact with knife, subsequent encounter; Z87.891 Personal history of nicotine dependence; M19.90 Unspecified osteoarthritis, unspecified site; I48.20 Chronic atrial fibrillation, unspecified; Z86.73 Personal history of transient ischemic attack (TIA), and cerebral infarction without residual deficits; E78.00 Pure hypercholesterolemia, unspecified; K21.9 Gastro-esophageal reflux disease without esophagitis; J44.9 Chronic obstructive pulmonary disease, unspecified; I10 Essential (primary) hypertension; E03.9 Hypothyroidism, unspecified; G20.A1 Parkinson's disease without dyskinesia, without mention of fluctuations; G40.909 Epilepsy, unspecified, not intractable, without status epilepticus; Z86.16 Personal history of COVID-19; Z95.5 Presence of coronary angioplasty implant and graft; Z79.01 Long term (current) use of anticoagulants
CPT/HCPCS: 99213; G0463